=== PATIENT | female | born 1975 | race Caucasian/White ===

== ENCOUNTER 2018-09-23 15:55 | Emergency (ER) | payer SELFPAY ==
[~2018-09-23] VITALS: Ht 165.1 cm; Wt 61.2 kg
--- OUTSIDE RECORDS SUMMARY | 2018-09-23 15:58 | XMS REPORT | Clinical Summary ---
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 Active ranitidine (ZANTAC) 150 Take 150 mg 0 MG tablet by mouth every morning. Active biotin 1 mg tablet Take 1,000 0 mcg by mouth every morning. Active multivitamin with Take 1 tablet 0 minerals tablet by mouth every morning. Active ascorbic acid, vitamin C, Take 250 mg 0 (vitamin C) 250 MG tablet by mouth every morning. Active MILK THISTLE ORAL Take 1 tablet 0 by mouth every morning. Active TURMERIC ROOT EXTRACT Take 1 tablet 0 ORAL by mouth every morning. 09/29/2017 amoxicillin-pot Take 1 tablet 20 tablet 0 clavulanate (AUGMENTIN) by mouth 8 875-125 mg per tablet every 12 (twelve) hours for 10 days. 09/26/2017 Discontinued HYDROcodone-acetaminophen Take 1-2 20 tablet 0 (NORCO) 5-325 mg per tablets by 8 tablet mouth every 4 (four) hours as needed for moderate pain or severe pain for up to 5 days. Max Daily Amount: 12 tablets 10/03/2017 ciprofloxacin HCl (CIPRO) Take 1 tablet 7 tablet 0 750 MG tablet (750 mg 8 total) by mouth daily for 7 days. 10/11/2017 naproxen (NAPROSYN) 375 Take 1 tablet 30 tablet 0 MG tablet (375 mg 8 total) by mouth 2 (two) times a day with meals for 15 days. 11/03/2017 ciprofloxacin HCl (CIPRO) Take 1 tablet 10 tablet 0 500 MG tablet (500 mg 8 total) by mouth 2 (two) times a day for 5 days. 11/28/2017 potassium chloride Take 1 tablet 60 tablet 0 (KLOR-CON) 10 MEQ CR (10 mEq 8 tablet total) by mouth 2 (two) times a day for 30 days. 11/28/2017 magnesium oxide (MAG-OX) Take 1 tablet 30 tablet 0 400 mg tablet (400 mg 8 total) by mouth daily for 30 days. 04/03/2018 Discontinued butalbital-acetaminophen- Take 1 tablet 20 tablet 0 caff (FIORICET, ESGIC) by mouth 8 50-325-40 mg per tablet every 4 (four) hours as needed for headaches for up to 30 days. 05/02/2018 levETIRAcetam (KEPPRA) Take 1 tablet 60 tablet 0 500 MG tabletIndications: (500 mg 8 Seizure disorder (HCC) total) by mouth 2 (two) times a day for 30 days. 07/02/2018 ferrous sulfate 325 (65 Take 1 tablet 90 tablet 2 FE) MG tablet (325 mg 8 total) by mouth 3 (three) times a day for 90 days. 04/03/2018 magnesium oxide (MAG-OX) Take 2 2 tablet 0 400 mg (241.3 mg tablets (800 8 magnesium) tablet mg total) by mouth once for 1 dose. 05/20/2018 dicyclomine (BENTYL) 20 Take 2 40 tablet 0 mg tablet tablets (40 9 mg total) by mouth every 6 (six) hours as needed (Abdominal Pain) for up to 10 days. 05/17/2018 ondansetron (ZOFRAN) 4 MG Take 1 tablet 20 tablet 0 tablet (4 mg total) 9 by mouth every 6 (six) hours as needed for nausea or vomiting for up to 7 days. Active Problems Problem Noted Date Acidosis 03/31/2018 Anemia 03/31/2018 Seizure 03/31/2018 Chest pain 10/25/2017 Cellulitis of right lower extremity 09/23/2017 Encounters Care Team Description Date Type Specialty Checo Xie MD Seizures (HCC) (Primary Dx); Dehydration; Anemia, unspecified type; Hypomagnesemia 05/30/2018 Emergency Emergency Medicine Prudence Roman MD Acute bilateral lower abdominal pain (Primary Dx); Acute gastroenteritis; Epileptic seizure, generalized (HCC) 05/09/2018 Emergency Emergency Medicine - 05/10/2018 Sulma Antoine MD Kohli, Anjali, MD Acidosis (Primary Dx); Severe anemia; Seizure disorder (HCC); Anemia, unspecified type; Iron deficiency anemia due to chronic blood loss 03/31/2018 [facility] General Internal Medicine - Encounter 04/04/2018 Checo Xie MD Bavare, Arusha Amod, MD Chest pain, unspecified type (Primary Dx); Electrolyte abnormality; Seizure; Hyponatremia; Dehydration; Nonintractable episodic headache, unspecified headache type; Hypertensive urgency; Leukocytosis, unspecified type; Urinary tract infection without hematuria, site unspecified 10/24/2017 [facility] General Surgery - Encounter 10/29/2017 Tino Daigle MD Yerramadha, Muralidhar Reddy, MD Cellulitis of right lower extremity (Primary Dx); Cat bite, subsequent encounter 09/23/2017 [facility] General Internal Medicine - Encounter 09/26/2017 after 09/22/2017 Immunizations Name Dates Previously Given Next Due Tdap 09/19/2017 Family History Medical History Relation Name Comments Hypertension Father Breast cancer Mother Hypertension Mother Relation Name Status Comments Father Mother Social History Date Tobacco Use Types Packs/Day Years Used Light Tobacco Smoker Cigarettes 0.25 20 Smokeless Tobacco: Never Used Alcohol Use Drinks/Week oz/Week Comments Yes 2 Glasses of 1.2 socially wine Sex Assigned at Date Recorded Not on file Industry Job Start Date Occupation Not on file Not on file Not on file Travel End Travel History Travel Start No recent travel history available. Last Filed Vital Signs Time Taken Vital Sign Reading 05/30/2018 6:18 AM TECHNICAL MGR Blood Pressure 107/86 05/30/2018 6:18 AM TECHNICAL MGR Pulse 95 05/30/2018 2:21 AM TECHNICAL MGR Temperature 36.8 C (98.3 F) 05/30/2018 6:18 AM TECHNICAL MGR Respiratory Rate 14 05/30/2018 6:18 AM TECHNICAL MGR Oxygen Saturation 94% - Inhaled Oxygen - Concentration 05/09/2018 9:44 PM TECHNICAL MGR Weight 58.1 kg (128 lb) 05/30/2018 2:21 AM TECHNICAL MGR Height 165.1 cm (5' 5") 05/09/2018 9:44 PM TECHNICAL MGR Body Mass Index 21.97 Plan of Treatment Health Maintenance Due Date Last Done Comments INFLUENZA VACCINE 11/16/2018 Procedures Comments Procedure Name Priority Date/Time Associated Diagnosis ECG 12-LEAD STAT 05/30/2018 5:00 AM TECHNICAL MGR XR CHEST 1 VW PORTABLE STAT 05/30/2018 3:[address] HEAD WO CONTRAST STAT 05/30/2018 3:12 AM TECHNICAL MGR ESTIMATED GFR STAT 05/30/2018 2:54 AM TECHNICAL MGR CREATINE KINASE, TOTAL STAT 05/30/2018 (CPK) 2:54 AM TECHNICAL MGR B NATRIURETIC PEPTIDE STAT 05/30/2018 2:54 AM TECHNICAL MGR TROPONIN STAT 05/30/2018 2:54 AM TECHNICAL MGR MAGNESIUM LEVEL STAT 05/30/2018 2:54 AM TECHNICAL MGR PHOSPHORUS LEVEL STAT 05/30/2018 2:54 AM TECHNICAL MGR COMPREHENSIVE METABOLIC STAT 05/30/2018 PANEL 2:54 AM TECHNICAL MGR PARTIAL THROMBOPLASTIN STAT 05/30/2018 TIME (PTT) 2:54 AM TECHNICAL MGR PROTHROMBIN TIME WITH INR STAT 05/30/2018 2:54 AM TECHNICAL MGR HC COMPLETE BLD COUNT STAT 05/30/2018 W/AUTO DIFF 2:54 AM TECHNICAL MGR ECG ED PRELIMINARY Routine 05/30/2018 INTERPRETATION 2:[address] HEAD WO CONTRAST STAT 05/10/2018 12:[address] ABDOMEN PELVIS W STAT 05/10/2018 CONTRAST 12:57 AM TECHNICAL MGR SMEAR REVIEW STAT 05/09/2018 11:16 PM TECHNICAL MGR ESTIMATED GFR STAT 05/09/2018 11:16 PM TECHNICAL MGR KEPPRA (LEVETIRACETAM) Routine 05/09/2018 LEVEL 11:16 PM TECHNICAL MGR HCG QUALITATIVE, SERUM STAT 05/09/2018 SCREEN 11:16 PM TECHNICAL MGR URINALYSIS SCREEN AND STAT 05/09/2018 MICROSCOPY, WITH REFLEX 11:16 PM TECHNICAL MGR TO CULTURE LIPASE LEVEL STAT 05/09/2018 11:16 PM TECHNICAL MGR COMPREHENSIVE METABOLIC STAT 05/09/2018 PANEL 11:16 PM TECHNICAL MGR PROTHROMBIN TIME WITH INR STAT 05/09/2018 11:16 PM TECHNICAL MGR HC COMPLETE BLD COUNT STAT 05/09/2018 W/AUTO DIFF 11:16 PM TECHNICAL MGR URINE CULTURE STAT 05/09/2018 11:16 PM TECHNICAL MGR HC COMPLETE BLD COUNT Routine 04/04/2018 W/AUTO DIFF 4:15 AM TECHNICAL MGR ESTIMATED GFR Routine 04/04/2018 4:00 AM TECHNICAL MGR BASIC METABOLIC PANEL Routine 04/04/2018 4:00 AM TECHNICAL MGR URINE PROTEIN Routine 04/03/2018 ELECTROPHORESIS, 24 HOUR 3:30 PM TECHNICAL MGR ESTIMATED GFR Routine 04/03/2018 5:03 AM TECHNICAL MGR ANTI MITOCHONDRIA SCREEN Routine 04/03/2018 5:03 AM TECHNICAL MGR ANTI SMOOTH MUSCLE AB Routine 04/03/2018 SCREEN 5:03 AM TECHNICAL MGR ANTI-NEUTROPHILIC Routine 04/03/2018 CYTOPLASMIC ABS PANEL 5:03 AM TECHNICAL MGR CHICO Routine 04/03/2018 5:03 AM TECHNICAL MGR MAGNESIUM LEVEL Routine 04/03/2018 5:03 AM TECHNICAL MGR PHOSPHORUS LEVEL Routine 04/03/2018 5:03 AM TECHNICAL MGR HEPATIC FUNCTION PANEL Routine 04/03/2018 5:03 AM TECHNICAL MGR BASIC METABOLIC PANEL Routine 04/03/2018 5:03 AM TECHNICAL MGR HC COMPLETE BLD COUNT Routine 04/03/2018 W/AUTO DIFF 5:03 AM TECHNICAL MGR US HEPATIC Routine 04/02/2018 2:25 PM TECHNICAL MGR GC BY PROBETEC Routine 04/02/2018 1:31 PM TECHNICAL MGR HEPATITIS ACUTE PANEL Routine 04/02/2018 11:05 AM TECHNICAL MGR HC COMPLETE BLD COUNT Routine 04/02/2018 W/AUTO DIFF 6:41 AM TECHNICAL MGR ESTIMATED GFR Routine 04/02/2018 4:00 AM TECHNICAL MGR BASIC METABOLIC PANEL Routine 04/02/2018 4:00 AM TECHNICAL MGR HEMOGLOBIN & HEMATOCRIT Routine 04/01/2018 6:15 PM TECHNICAL MGR MRI BRAIN W WO CONTRAST STAT 04/01/2018 3:56 PM TECHNICAL MGR CBC HEMOGRAM Routine 04/01/2018 11:10 AM TECHNICAL MGR HEMOGLOBIN A1C STAT 04/01/2018 11:10 AM TECHNICAL MGR SERUM ELECTROPHORESIS Routine 04/01/2018 11:10 AM TECHNICAL MGR PARTIAL THROMBOPLASTIN Routine 04/01/2018 TIME (PTT) 11:10 AM TECHNICAL MGR PROTHROMBIN TIME WITH INR Routine 04/01/2018 11:10 AM TECHNICAL MGR BLOOD CULTURE, AEROBIC & Routine 04/01/2018 ANAEROBIC 11:10 AM TECHNICAL MGR BLOOD CULTURE, AEROBIC & Routine 04/01/2018 ANAEROBIC 10:10 AM TECHNICAL MGR ECG 12-LEAD STAT 04/01/2018 9:54 AM TECHNICAL MGR EEG EXTENDED 41 - 60 MINS Routine 04/01/2018 9:00 AM TECHNICAL MGR LACTIC ACID LEVEL STAT 04/01/2018 7:30 AM TECHNICAL MGR GGT STAT 04/01/2018 7:30 AM TECHNICAL MGR POTASSIUM, URINE, RANDOM Routine 04/01/2018 7:30 AM TECHNICAL MGR TROPONIN STAT 04/01/2018 7:30 AM TECHNICAL MGR LIPID PANEL STAT 04/01/2018 7:30 AM TECHNICAL MGR VITAMIN B12 LEVEL STAT 04/01/2018 7:30 AM TECHNICAL MGR FOLATE LEVEL STAT 04/01/2018 7:30 AM TECHNICAL MGR HEPATITIS BE AB Routine 04/01/2018 7:30 AM TECHNICAL MGR HEPATITIS BE AG Routine 04/01/2018 7:30 AM TECHNICAL MGR HEPATITIS B SURFACE Routine 04/01/2018 ANTIBODY 7:30 AM TECHNICAL MGR HIV AG/AB COMBINATION Routine 04/01/2018 7:30 AM TECHNICAL MGR CHLORIDE LEVEL, URINE, Routine 04/01/2018 RANDOM 7:30 AM TECHNICAL MGR SODIUM LEVEL, URINE, Routine 04/01/2018 RANDOM 7:30 AM TECHNICAL MGR URINALYSIS SCREEN AND Routine 04/01/2018 MICROSCOPY, WITH REFLEX 7:30 AM TECHNICAL MGR TO CULTURE URINE DRUGS OF ABUSE Routine 04/01/2018 SCREEN 7:30 AM TECHNICAL MGR URINE CULTURE Routine 04/01/2018 7:30 AM TECHNICAL MGR PREALBUMIN LEVEL Routine 04/01/2018 3:45 AM TECHNICAL MGR GGT Routine 04/01/2018 3:20 AM TECHNICAL MGR LACTIC ACID LEVEL Routine 04/01/2018 3:20 AM TECHNICAL MGR SMEAR REVIEW Routine 04/01/2018 3:20 AM TECHNICAL MGR ESTIMATED GFR Routine 04/01/2018 3:20 AM TECHNICAL MGR HC COMPLETE BLD COUNT Routine 04/01/2018 W/AUTO DIFF 3:20 AM TECHNICAL MGR PHOSPHORUS LEVEL Routine 04/01/2018 3:20 AM TECHNICAL MGR MAGNESIUM LEVEL Routine 04/01/2018 3:20 AM TECHNICAL MGR COMPREHENSIVE METABOLIC Routine 04/01/2018 PANEL 3:20 AM TECHNICAL MGR LACTIC ACID LEVEL, SEPSIS Timed 04/01/2018 - NOW AND REPEAT 2X EVERY 1:10 AM TECHNICAL MGR [address] ANGIOGRAM ABDOMEN STAT 04/01/2018 PELVIS W AND OR WO 1:00 AM TECHNICAL MGR CONTRAST HEPATITIS C ANTIBODY Routine 04/01/2018 12:53 AM TECHNICAL MGR LACTIC ACID LEVEL Routine 03/31/2018 9:51 PM TECHNICAL MGR FOLATE LEVEL Routine 03/31/2018 9:51 PM TECHNICAL MGR THYROID STIMULATING Routine 03/31/2018 HORMONE 9:51 PM TECHNICAL MGR VITAMIN B12 LEVEL Routine 03/31/2018 9:51 PM TECHNICAL MGR TOTAL IRON BINDING Routine 03/31/2018 CAPACITY 9:51 PM TECHNICAL MGR LDH Routine 03/31/2018 9:51 PM TECHNICAL MGR HAPTOGLOBIN Routine 03/31/2018 9:51 PM TECHNICAL MGR FERRITIN LEVEL Routine 03/31/2018 9:51 PM TECHNICAL MGR RETICULOCYTE COUNT Routine 03/31/2018 9:51 PM TECHNICAL MGR PERIPHERAL SMEAR Routine 03/31/2018 9:[address] HEAD WO CONTRAST STAT 03/31/2018 9:25 PM TECHNICAL MGR PREPARE RBC Timed 03/31/2018 8:54 PM TECHNICAL MGR TYPE AND SCREEN Timed 03/31/2018 8:54 PM TECHNICAL MGR HEMOGLOBIN & HEMATOCRIT STAT 03/31/2018 8:49 PM TECHNICAL MGR SMEAR REVIEW STAT 03/31/2018 7:36 PM TECHNICAL MGR ESTIMATED GFR STAT 03/31/2018 7:36 PM TECHNICAL MGR CREATINE KINASE, TOTAL STAT 03/31/2018 (CPK) 7:36 PM TECHNICAL MGR LACTIC ACID LEVEL, SEPSIS STAT 03/31/2018 - NOW AND REPEAT 2X EVERY 7:36 PM TECHNICAL MGR 3 HOURS HCG QUALITATIVE, SERUM STAT 03/31/2018 SCREEN 7:36 PM TECHNICAL MGR COMPREHENSIVE METABOLIC STAT 03/31/2018 PANEL 7:36 PM TECHNICAL MGR HC COMPLETE BLD COUNT STAT 03/31/2018 W/AUTO DIFF 7:36 PM TECHNICAL MGR DC CRITICAL CARE, E/M Routine 03/31/2018 30-74 MINUTES 7:17 PM TECHNICAL MGR ZZESTIMATED GFR Routine 10/29/2017 4:29 AM CDT CREATINE KINASE, TOTAL Routine 10/29/2017 (CPK) 4:29 AM CDT MAGNESIUM LEVEL Routine 10/29/2017 4:29 AM CDT COMPREHENSIVE METABOLIC Routine 10/29/2017 PANEL 4:29 AM CDT HC COMPLETE BLD COUNT Routine 10/29/2017 W/AUTO DIFF 4:29 AM CDT ZZESTIMATED GFR Routine 10/28/2017 8:46 AM CDT MAGNESIUM LEVEL Routine 10/28/2017 8:46 AM CDT CREATINE KINASE, TOTAL Routine 10/28/2017 (CPK) 8:46 AM CDT COMPREHENSIVE METABOLIC Routine 10/28/2017 PANEL 8:46 AM CDT ZZESTIMATED GFR Routine 10/27/2017 4:30 AM CDT THYROID STIMULATING Routine 10/27/2017 HORMONE 4:30 AM CDT URIC ACID LEVEL Routine 10/27/2017 4:30 AM CDT CREATINE KINASE, TOTAL Routine 10/27/2017 (CPK) 4:30 AM CDT PHOSPHORUS LEVEL Routine 10/27/2017 4:30 AM CDT MAGNESIUM LEVEL Routine 10/27/2017 4:30 AM CDT HC COMPLETE BLD COUNT Routine 10/27/2017 W/AUTO DIFF 4:30 AM CDT COMPREHENSIVE METABOLIC Routine 10/27/2017 PANEL 4:30 AM CDT CREATINE KINASE, TOTAL Routine 10/26/2017 (CPK) 12:16 PM CDT ALDOLASE, SERUM Routine 10/26/2017 12:16 PM CDT MYOGLOBIN Routine 10/26/2017 12:16 PM CDT ECHOCARDIOGRAM 2D Routine 10/25/2017 COMPLETE W MMODE SPECTRAL 5:00 PM CDT COLOR DOPPLER ([id number]) TROPONIN Timed 10/25/2017 2:34 PM CDT MRI BRAIN WO CONTRAST STAT 10/25/2017 11:50 AM CDT ZZESTIMATED GFR Routine 10/25/2017 5:00 AM CDT COMPREHENSIVE METABOLIC Routine 10/25/2017 PANEL 5:00 AM CDT HC COMPLETE BLD COUNT Routine 10/25/2017 W/AUTO DIFF 5:00 AM CDT TROPONIN Timed 10/25/2017 5:[address] ANGIOGRAM PE CHEST STAT 10/25/2017 12:[address] HEAD WO CONTRAST STAT 10/25/2017 12:18 AM CDT D-DIMER Routine 10/24/2017 10:20 PM CDT ZZESTIMATED GFR STAT 10/24/2017 9:57 PM CDT THYROID STIMULATING STAT 10/24/2017 HORMONE 9:57 PM CDT CREATINE KINASE, TOTAL STAT 10/24/2017 (CPK) 9:57 PM CDT B NATRIURETIC PEPTIDE STAT 10/24/2017 9:57 PM CDT TROPONIN STAT 10/24/2017 9:57 PM CDT MAGNESIUM LEVEL STAT 10/24/2017 9:57 PM CDT PHOSPHORUS LEVEL STAT 10/24/2017 9:57 PM CDT COMPREHENSIVE METABOLIC STAT 10/24/2017 PANEL 9:57 PM CDT HCG QUALITATIVE, URINE STAT 10/24/2017 SCREEN 9:57 PM CDT URINALYSIS SCREEN AND STAT 10/24/2017 MICROSCOPY, WITH REFLEX 9:57 PM CDT TO CULTURE HC COMPLETE BLD COUNT STAT 10/24/2017 W/AUTO DIFF 9:57 PM CDT GRAM STAIN STAT 10/24/2017 9:57 PM CDT URINE CULTURE STAT 10/24/2017 9:57 PM CDT XR CHEST 2 VW STAT 10/24/2017 9:45 PM CDT ECG ED PRELIMINARY Routine 10/24/2017 INTERPRETATION 9:06 PM CDT DC CRITICAL CARE, E/M Routine 10/24/2017 30-74 MINUTES 9:06 PM CDT ECG 12-LEAD STAT 10/24/2017 8:53 PM CDT HC COMPLETE BLD COUNT Routine 09/25/2017 W/AUTO DIFF 6:00 AM CDT MRI FOOT WO CONTRAST LEFT Routine 09/24/2017 7:01 PM CDT US HEPATIC Routine 09/24/2017 5:09 PM CDT SEDIMENTATION RATE Routine 09/24/2017 5:04 AM CDT HEPATITIS ACUTE PANEL Routine 09/24/2017 5:04 AM CDT ZZESTIMATED GFR Routine 09/24/2017 5:00 AM CDT COMPREHENSIVE METABOLIC Routine 09/24/2017 PANEL 5:00 AM CDT HC COMPLETE BLD COUNT Routine 09/24/2017 W/AUTO DIFF 5:00 AM CDT ZZESTIMATED GFR STAT 09/23/2017 9:10 PM CDT HCG QUALITATIVE, SERUM STAT 09/23/2017 SCREEN 9:10 PM CDT LACTIC ACID LEVEL STAT 09/23/2017 9:10 PM CDT COMPREHENSIVE METABOLIC STAT 09/23/2017 PANEL 9:10 PM CDT PARTIAL THROMBOPLASTIN STAT 09/23/2017 TIME (PTT) 9:10 PM CDT PROTHROMBIN TIME WITH INR STAT 09/23/2017 9:10 PM CDT HC COMPLETE BLD COUNT STAT 09/23/2017 W/AUTO DIFF 9:10 PM CDT XR FOOT 3+ VW RIGHT STAT 09/23/2017 7:13 PM CDT after 09/22/2017 Results * ECG 12 lead (05/30/2018 5:00 AM TECHNICAL MGR) Only the most recent of 3 results within the time period is included. Ventricular 92 [facility] rate Atrial rate 92 [facility] DC interval 152 [facility] QRSD interval 84 [facility] QT interval 398 [facility] QTC interval 492 [facility] P axis 1 48 [facility] QRS axis 1 12 [facility] T wave axis 41 [facility] EKG impression Normal sinus rhythm-Prolonged H MUSE QT-Abnormal ECG-In automated comparison with ECG of 01-APR-2018 09:54,-No significant change was found- Specimen Narrative Performed At Performing Organization Address City/[facility] Phone Number [facility] MUSE [address] [place] [address] * XR Chest 1 Vw Portable (05/30/2018 3:17 AM TECHNICAL MGR) Specimen Narrative Performed At Examination:XR CHEST 1 VW PORTABLE [facility] Clinical History:seizures Comparison: None. Technique: Single frontal view of the chest is obtained. Findings: The lungs are free of infiltrate. The heart size is normal. No pleural effusion is seen. Impression: No active cardiopulmonary disease identified. [id number] Procedure Note Hm Interface, Radiology Results Incoming - 05/30/2018 3:22 AM TECHNICAL MGR Examination: XR CHEST 1 VW PORTABLE Clinical History: seizures Comparison: None. Technique: Single frontal view of the chest is obtained. Findings: The lungs are free of infiltrate. The heart size is normal. No pleural effusion is seen. Impression: No active cardiopulmonary disease identified. [id number] Performing Organization Address City/[facility] Phone Number [facility] [address] [place] [address] * CT Head Wo Contrast (05/30/2018 3:12 AM TECHNICAL MGR) Only the most recent of 4 results within the time period is included. Specimen Narrative Performed At Examination:CT HEAD WO CONTRAST [facility] Clinical History: seizureheadachefrontal sinus pressure Comparison: None. CT scan of the brain was performed without intravenous contrast. CT scans are performed using radiation dose reduction techniques.Technical factors are evaluated and adjusted to ensure appropriate moderation of exposure.Automated dose management technology is applied to adjust radiation exposure while achieving a diagnostic quality image.CT imaging was performed with iterative reconstruction techniques and/or automated exposure control to reduce radiation dose. No mass effect or midline shift is seen. The ventricles are normal in size. No intracranial hemorrhage is seen. The visualized bony structures shows no acute abnormality. Harmon-white junctions are preserved. Minimal mucosal thickening of left maxillary sinus is noted. Remainder of the sinuses are clear. IMPRESSION: 1. Minimal mucosal thickening of the left maxillary sinus. Otherwise no acute or focal intracranial abnormality identified. [id number] Procedure Note Interface, Radiology Results Incoming - 05/30/2018 3:21 AM TECHNICAL MGR Examination: CT HEAD WO CONTRAST Clinical History: seizure headache frontal sinus pressure Comparison: None. CT scan of the brain was performed without intravenous contrast. CT scans are performed using radiation dose reduction techniques. Technical factors are evaluated and adjusted to ensure appropriate moderation of exposure. Automated dose management technology is applied to adjust radiation exposure while achieving a diagnostic quality image. CT imaging was performed with iterative reconstruction techniques and/or automated exposure control to reduce radiation dose. No mass effect or midline shift is seen. The ventricles are normal in size. No intracranial hemorrhage is seen. The visualized bony structures shows no acute abnormality. Harmon-white junctions are preserved. Minimal mucosal thickening of left maxillary sinus is noted. Remainder of the sinuses are clear. IMPRESSION: 1. Minimal mucosal thickening of the left maxillary sinus. Otherwise no acute or focal intracranial abnormality identified. [id number] Performing Organization Address City/State/Zipcode Phone Number [facility] [address] [place] [address] * Estimated GFR (05/30/2018 2:54 AM TECHNICAL MGR) Only the most recent of 7 results within the time period is included. Estimated GFR >=90 mL/min/1.73 m2 SPENCER Comment: CONFUCIANIST [facility] rpretation G1 >=90 Normal or high G2 60-89Mildly decreased [id number] Mildly to moderately decreased [id number] Moderately to severely decreased G4 15-29Severely decreased G5 <15Kidney failure The eGFR was calculated using the Chronic Kidney Disease Epidemiology Collaboration (CKD-EPI) equation. Interpretation is based on recommendations of the National Kidney Foundation-Kidney Disease Outcomes Quality Initiative (NKF-KDOQI) published in 2014. Specimen Plasma specimen Performing Organization Address [facility] Phone Number [address] [place] [place] [address] * Troponin (05/30/2018 2:54 AM TECHNICAL MGR) Only the most recent of 5 results within the time period is included. [facility] Troponin <0.300 0.000 - 0.300 ng/mL SPENCER Comment: CONFUCIANIST ST. 0.30 - 1.49 [facility] ng/mlMay indicate increased risk of acute coronary syndrome. >=1.5 ng/ml Consistent with acute myocardial infarction. The diagnostic value of a single normal or non-diagnostic result is questionable.Serial samples at 2-6 hour intervals are required to rule out acute myocardial injury. Specimen Plasma specimen Performing Organization Address [facility] Phone Number [address] [place] [address] [place] [address] * Partial thromboplastin time, activated (05/30/2018 2:54 AM TECHNICAL MGR) Only the most recent of 3 results within the time period is included. [facility] PTT 37.3 (H) 23.0 - 36.0 sec SPENCER Comment: SAURAV TEJEDA PTT therapeutic range for [facility] unfractionated heparin is 61.0-112.0 seconds which corresponds to Anti-Xa 0.3-0.7 U/ml. Specimen Blood Performing Organization Address [facility] Phone Number [place] [address] [place] [place] [address] [place] [address] * Prothrombin time with INR (05/30/2018 2:54 AM TECHNICAL MGR) Only the most recent of 4 results within the time period is included. [facility] Prothrombin 14.1 11.5 - 14.5 sec [facility] INR 1.1 SPENCER Comment: SAURAV LOCKWOOD The International Normalized [facility] Ratio (INR) is a therapeutic monitoring tool for patients who are stable on oral anticoagulant therapy. An INR of 2.0-3.0 is suggested for deep vein thrombosis/pulmonary embolism. Specimen Blood Performing Organization Address City/[facility]/Zipcode Phone Number [address] [place] [phone] [facility]OLOGY [facility] GENOMIC MEDICINE [address] * CBC with platelet and differential (05/30/2018 2:54 AM TECHNICAL MGR) Only the most recent of 14 results within the time period is included. WBC 4.16 (L) 4.50 - 11.00 k/uL [facility] RBC 3.72 (L) 4.20 - 5.50 m/uL [facility] HGB 11.1 (L) 12.0 - 16.0 g/dL [facility] HCT 34.5 (L) 37.0 - 47.0 % [facility] MCV 92.7 82.0 - 100.[address] [facility] MCH 29.8 27.0 - 34.[address] [facility] MCHC 32.2 31.0 - 37.0 g/dL [facility] RDW - SD 54.4 37.0 - 55.[address] [facility] MPV 9.2 8.8 - 13.[address] [facility] Platelet count 221 150 - 400 k/uL [facility] Nucleated RBC 0.00 /[address] [facility] Neutrophils 27.9 (L) 39.0 - 69.0 % [facility] [facility] Lymphocytes 51.2 (H) 25.0 - 45.0 % [facility] Monocytes 17.1 (H) 0.0 - 10.0 % [facility] Eosinophils 1.9 0.0 - 5.0 % [facility] Basophils 1.9 (H) 0.0 - 1.0 % [facility] Specimen Blood Performing Organization Address City/[facility]/Zipcode Phone Number [facility] OF [address] [place] [address] [place] [address] PATHOLOGY AND GENOMIC MEDICINE [address] * Phosphorus level (05/30/2018 2:54 AM TECHNICAL MGR) Only the most recent of 5 results within the time period is included. Phosphorus 4.1 2.4 - 4.5 mg/dL [facility] Specimen Plasma specimen Performing Organization Address [facility] Phone Number [address] [place] [address] PATHOLOGY AND [address] * B natriuretic peptide (05/30/2018 2:54 AM TECHNICAL MGR) Only the most recent of 2 results within the time period is included. BNP 17 0 - 100 pg/mL [facility] Specimen Blood Performing Organization Address [facility] Phone Number [address] [place] [address] PATHOLOGY AND [address] * Magnesium level (05/30/2018 2:54 AM TECHNICAL MGR) Only the most recent of 7 results within the time period is included. Magnesium 1.5 (L) 1.6 - 2.6 mg/dL [facility] Specimen Plasma specimen Performing Organization Address [facility] Phone Number [address] [place] [address] PATHOLOGY AND GENOMIC [address] * Creatine kinase, total (CPK) (05/30/2018 2:54 AM TECHNICAL MGR) Only the most recent of 7 results within the time period is included. Creatine kinase 65 26 - 192 U/L [facility] Specimen Plasma specimen Performing Organization Address [facility] Phone Number [address] [place] [address] [facility]INE [address] * Comprehensive metabolic panel (05/30/2018 2:54 AM TECHNICAL MGR) Only the most recent of 11 results within the time period is included. Sodium 139 135 - 148 mEq/L [facility] Potassium 4.1 3.5 - 5.0 mEq/L [facility] Chloride 105 98 - 112 mEq/L [facility] CO2 21 (L) 24 - 31 mEq/L [facility] Anion gap 13@ANIO 7 - 15 mEq/L [facility] BUN 9 6 - 20 mg/dL [facility] Creatinine 0.50 0.50 - 0.90 mg/dL [facility] Glucose 100 (H) 65 - 99 mg/dL [facility] Calcium 9.4 8.3 - 10.2 mg/dL [facility] Protein 8.8 (H) 6.3 - 8.3 g/dL [facility] Comment: [facility] 4.6-7.0 g/dL 1 week 4.4-7.6 g/dL 7 months-1year 5.1-7.3 g/dL 1-2 years5.6-7 .5 g/dL >3 years6.0-8 .0 g/dL 18-150 6.3-8.3 g/dL Albumin 4.5 3.5 - 5.0 g/dL [facility] A/G ratio 1.0 0.7 - 3.8 [facility] Alkaline 373 (H) 35 - 104 U/L [facility] phosphatase [facility] AST 124 (H) 10 - 35 U/L [facility] ALT 39 5 - 50 U/L [facility] Total bilirubin 0.3 0.0 - 1.2 mg/dL [facility] Specimen Plasma specimen Performing Organization Address City/State/Zipcode Phone Number [facility] [place] [id number] [place] [address] [place] [address] PATHOLOGY AND GENOMIC MEDICINE [facility] [id number] [place] [address] * ECG ED Preliminary Interpretation - Not an Order (05/30/2018 2:20 AM TECHNICAL MGR) Only the most recent of 2 results within the time period is included. Narrative Performed At Checo Xie MD 05/30/20187:18 AM ECG ED Preliminary Interpretation - Not an Order Performed by: Checo Xie MD Authorized by: Checo Xie MD Rate: ECG rate:92 ECG rate assessment: normal Rhythm: Rhythm: sinus rhythm QRS: QRS axis:Normal QRS intervals:Normal ST segments: ST segments:Normal T waves: T waves: normal Other findings: Other findings: prolonged qTc interval * CT Abdomen Pelvis W Contrast (05/10/2018 12:57 AM TECHNICAL MGR) Specimen Narrative Performed At EXAMINATION:CT ABDOMEN PELVIS W CONTRAST [facility] CLINICAL HISTORY:Lower abd pain tendernesscolonoscopy 1 week ago. TECHNIQUE: Multiple axial images of the abdomen and pelvis were obtained following intravenous administration of iodinated contrast. Sagittal and coronal computerized reformatted images were also obtained. CT imaging was performed with iterative reconstruction technique and/or automated exposure control to reduce radiation dose. COMPARISON:04/01/2018 IMPRESSION: Mild bibasilar atelectasis. In the right middle lobe, there is a 4 mm nodule. Patient is status post cholecystectomy. Liver is enlarged measuring 21.6 cm in length. Spleen, pancreas, adrenal glands are normal. Kidneys, ureters and bladder are normal. No free intraperitoneal fluid or air. Some prominent lymph nodes are seen in the chaim hepatis and upper retroperitoneum. This is nonspecific but could be reactive to underlying infection or inflammation or hepatitis. A radiopaque foreign body is seen in the rectum measuring 1.2 x 0.6 cm. Air-fluid levels are seen of nondilated loops of large bowel and small bowel. This is nonspecific but could be seen with ileus or enteritis. The appendix is surgically absent. No gastrointestinal tract obstruction. Arising from the right ovary, a 2.2 x 2.2 cm cyst is identified. Just adjacent, 1.5 x 1.8 cm complex cystic structure is seen measuring greater density in simple fluid. These findings would be better assessed with pelvic ultrasound. No acute osseous abnormalities. CONCLUSION: There is a 1.2 x 0.6 cm radiopaque foreign body in the rectum. Correlation for prior clip placement is advised. Air-fluid levels are seen of nondilated loops of large bowel and small bowel. This nonspecific but could be seen with ileus or enteritis. A 2.2 x 2.2 cm cyst is seen of the right ovary. A 1.5 x 1.8 cm complex cystic structure is seen just adjacent. These findings would be better assessed with pelvic ultrasound. Findings were discussed with and read back by Dr. PRUDENCE ROMAN at 05/10/2018 1:08 AM who verbalized understanding. [facility]-[id number] Procedure Note [facility], Radiology Results Incoming - 05/10/2018 1:15 AM TECHNICAL MGR EXAMINATION: CT ABDOMEN PELVIS W CONTRAST CLINICAL HISTORY: Lower abd pain tenderness colonoscopy 1 week ago. TECHNIQUE: Multiple axial images of the abdomen and pelvis were obtained following intravenous administration of iodinated contrast. Sagittal and coronal computerized reformatted images were also obtained. CT imaging was performed with iterative reconstruction technique and/or automated exposure control to reduce radiation dose. COMPARISON: 04/01/2018 IMPRESSION: Mild bibasilar atelectasis. In the right middle lobe, there is a 4 mm nodule. Patient is status post cholecystectomy. Liver is enlarged measuring 21.6 cm in length. Spleen, pancreas, adrenal glands are normal. Kidneys, ureters and bladder are normal. No free intraperitoneal fluid or air. Some prominent lymph nodes are seen in the chaim hepatis and upper retroperitoneum. This is nonspecific but could be reactive to underlying infection or inflammation or hepatitis. A radiopaque foreign body is seen in the rectum measuring 1.2 x 0.6 cm. Air- fluid levels are seen of nondilated loops of large bowel and small bowel. This is nonspecific but could be seen with ileus or enteritis. The appendix is surgically absent. No gastrointestinal tract obstruction. Arising from the right ovary, a 2.2 x 2.2 cm cyst is identified. Just adjacent, 1.5 x 1.8 cm complex cystic structure is seen measuring greater density in simple fluid. These findings would be better assessed with pelvic ultrasound. No acute osseous abnormalities. CONCLUSION: There is a 1.2 x 0.6 cm radiopaque foreign body in the rectum. Correlation for prior clip placement is advised. Air-fluid levels are seen of nondilated loops of large bowel and small bowel. This nonspecific but could be seen with ileus or enteritis. A 2.2 x 2.2 cm cyst is seen of the right ovary. A 1.5 x 1.8 cm complex cystic structure is seen just adjacent. These findings would be better assessed with pelvic ultrasound. Findings were discussed with and read back by Dr. PRUDENCE ROMAN at 05/10/2018 1:08 AM who verbalized understanding. [facility]-[id number] Performing Organization Address City/State/Zipcode Phone Number [facility] [address] [place] [address] * Urinalysis screen and microscopy, with reflex to culture (05/09/2018 11:16 PM TECHNICAL MGR) Only the most recent of 3 results within the time period is included. Specimen site Clean catch [facility] Color, UA Straw [facility] Appearance, UA Clear [facility] Specific 1.003 1.001 - 1.035 [facility] gravity, UA [facility] pH, UA 5.0 5.0 - 8.5 [facility] Protein, UA Negative Negative [facility] Glucose, UA Negative Negative [facility] Ketones, UA Negative Negative [facility] Bilirubin, UA Negative Negative [facility] Blood, UA Negative Negative [facility] Nitrite, UA Negative Negative [facility] Urobilinogen, Negative <2.0 [facility] Leukocyte Negative Negative [facility] esterase, UA [facility] Epithelial Few /HPF [facility] cells, UA [facility] WBC, UA 0-5 0 - 4 /HPF [facility] RBC, UA 0-5 0 - 5 /HPF [facility] Bacteria, UA None seen None seen [facility] Yeast, UA None seen [facility] Yeast with None seen [facility] Spec[facility] Urine Performing Organization Address City/[facility] Phone Number [address] [place] [address] PATHOLOGY AND GENOMIC MEDICINE [address] [place], [place] [id number] [place] [address] * Smear review (05/09/2018 11:16 PM TECHNICAL MGR) Only the most recent of 3 results within the time period is included. Platelet slide Dane adequate [facility] review [facility] Anisocytosis Moderate [facility] Specimen Performing Organization Address City/State/Zipcode Phone Number [facility] DEPARTMENT [address] [place] [address] PATHOLOGY AND GENOMIC MEDICINE [address] * Keppra (Levetiracetam) level (05/09/2018 11:16 PM TECHNICAL MGR) [facility] Levetiracetam 14 12 - 46 ug/mL [facility] Comment: INTERPRETIVE INFORMATION: Keppra (Levetiracetam) Therapeutic Range:12-46 ug/mL Toxic: Not well Established Pharmacokinetics of levetiracetam are affected by renal function. Adverse effects may include somnolence, weakness, headache and vomiting. This levetiracetam (Keppra) immunoassay uses the [employer] reagents, which has known cross-reactivity with the drug brivaracetam (Briviact) and may report inaccurate results. Patients transitioning from levetiracetam to brivaracetam or those who are using both medications should not monitor drug concentrations with the [employer] assay. These patients should be monitored using a validated chromatographic methodology that distinguishes between drugs to determine drug concentrations. Performed by [facility], [address] [place] [id number] [email or web address], Clayton Chambers MD - Lab. Director Specimen Serum Performing Organization Address City/[facility]/Zipcode Phone Number [facility] [address] [place] [address] [facility] [address] [place] [address] * Urine culture (05/09/2018 11:16 PM TECHNICAL MGR) Only the most recent of 3 results within the time period is included. [facility] Urine culture SEE COMMENTComment: [facility] Bacteriuria screen negative. [facility] Specimen Urine Performing Organization Address City/State/Zipcode Phone Number [facility] DEPARTMENT OF [address] [place] [address] [place] [address] PATHOLOGY AND GENOMIC MEDICINE [address] * hCG qualitative, serum screen (05/09/2018 11:16 PM TECHNICAL MGR) Only the most recent of 3 results within the time period is included. [facility] hCG Negative [facility] qualitative, Comment: [facility] serum lot [id number] [facility] exp, 8-20 control valid Specimen Blood Performing Organization Address [facility] Corporationcoid Phone Number [facility] DEPARTMENT [id number] [place] [address] [place] [address] [facility] MEDICINE [address] * Lipase level (05/09/2018 11:16 PM TECHNICAL MGR) Lipase 31 13 - 60 U/L [facility] Specimen Plasma specimen Performing Organization Address [facility] Phone Number [address] [place] [address] [facility] [address] * Basic metabolic panel (04/04/2018 4:00 AM TECHNICAL MGR) Only the most recent of 3 results within the time period is included. Sodium 137 135 - 148 mEq/L [facility] Potassium 4.1 3.5 - 5.0 mEq/L [facility] Chloride 101 98 - 112 mEq/L [facility] CO2 20 (L) 24 - 31 mEq/L [facility] Anion gap 16@ANIO (H) 7 - 15 mEq/L [facility] BUN 11 6 - 20 mg/dL [facility] Creatinine 0.60 0.50 - 0.90 mg/dL [facility] Glucose 87 65 - 99 mg/dL [facility] Calcium 9.7 8.3 - 10.2 mg/dL [facility] Specimen Plasma specimen Performing Organization Address [facility] Corporationcode Phone Number [facility] DEPARTMENT [address] [place] [address] [facility] MEDICINE [address] * Urine protein electrophoresis, 24 hour (04/03/2018 3:30 PM TECHNICAL MGR) Collection 04/02/2018 [facility] start date, [facility] Collection 1529 [facility] start time, [facility] Collection stop 04/03/2018 [facility] date, urine [facility] Collection stop 1529 [facility] time, urine [facility] Hours of 24 [facility] Total volume, 4,950 mL [facility] urine [facility] Urine protein <4 mg/dL [facility] Urine protein SEE COMMENTComment: Unable to 0 - 150 mg/24hrs [facility] 24 hr excretion calculate excretion due to low CONFUCIANIST analyte concentration. HOSPITAL UPE albumin 45.5 % [facility] UPE globulin 54.5 % [facility] UPE extended See Comment [facility] interpretation Comment: CONFUCIANIST An essentially normal 24 hour HOSPITAL urine protein study without clinical proteinuria. Total volume is in the polyuric range. UPE See Comment [facility] interpretation Comment: CONFUCIANIST Cristino Bowers, PhD; [facility] MD Sander; Jam Orellana, PhD; Yazan Park MD, PhD Specimen Urine Performing Organization Address City/State/Zipcode Phone Number [facility] DEPARTMENT OF [address] [place] [address] [facility] [address] * Anti smooth muscle Ab screen (04/03/2018 5:03 AM TECHNICAL MGR) [facility] Anti smooth Not Detected Not-Detected [facility] muscle Ab [facility] Specimen Blood Performing Organization Address City/[facility] Corporationcode Phone Number [facility] [place] [facility] DEPARTMENT OF [address] [place] [address] PATHOLOGY AND GENOMIC MEDICINE [address] * Anti mitochondria screen (04/03/2018 5:03 AM TECHNICAL MGR) [facility] Anti Not Detected Not-Detected [facility] mitochondria [facility] Specimen Blood Performing Organization Address City/[facility] Corporationcode Phone Number [facility] [place] [facility] DEPARTMENT OF [address] [place] [address] [facility] MEDICINE [address] * Anti-neutrophilic cytoplasmic Abs panel (04/03/2018 5:03 AM TECHNICAL MGR) [facility] ANCA screen Negative Negative [facility] Specimen Blood Performing Organization Address City/[facility]/Zipcode Phone Number [facility] [place] [facility] DEPARTMENT OF [address] [place] [address] [facility] MEDICINE [address] * CHICO (04/03/2018 5:03 AM TECHNICAL MGR) [facility] CHICO screen Negative Negative [facility] Specimen Blood Performing Organization Address City/[facility]/Zipcode Phone Number [facility] [place] [facility] DEPARTMENT OF [address] [place] [address] PATHOLOGY AND GENOMIC MEDICINE [address] * Hepatic function panel (04/03/2018 5:03 AM TECHNICAL MGR) Albumin 3.3 (L) 3.5 - 5.0 g/dL [facility] Total bilirubin 0.5 0.0 - 1.2 mg/dL [facility] Bilirubin <0.2 0.0 - 0.3 mg/dL [facility] direct [facility] Alkaline 261 (H) 35 - 104 U/L [facility] phosphatase [facility] Protein 7.7 6.3 - 8.3 g/dL [facility] Comment: [facility] [place] 4.6-7.0 g/dL 1 week 4.4-7.6 g/dL 7 months-1year 5.1-7.3 g/dL 1-2 years5.6-7 .5 g/dL >3 years6.0-8 .0 g/dL 18-150 6.3-8.3 g/dL ALT 24 5 - 50 U/L [facility] AST 50 (H) 10 - 35 U/L [facility] Specimen Plasma specimen Performing Organization Address City/State/Zipcode Phone Number [facility] [place] [facility] DEPARTMENT OF [address] [place] [address] PATHOLOGY AND GENOMIC MEDICINE [address] * US Hepatic (04/02/2018 2:25 PM TECHNICAL MGR) Only the most recent of 2 results within the time period is included. Specimen Narrative Performed At EXAMINATION:US HEPATIC [facility] CLINICAL HISTORY:elevated LFTs COMPARISON:September 24, 2017 ultrasound Impression: 1.There has been a prior cholecystectomy. The common bile duct is not dilated (4 mm). 2.There may be mild increase in echogenicity in the liver suggesting some mild fatty infiltration. This is less pronounced than on the prior ultrasound. 3.No focal hepatic lesions are noted. 4.The portal venous system is patent and flow is directed towards the liver. 5.No significant free fluid noted in the upper abdomen. [facility]-[id number] Procedure Note Interface, Radiology Results Incoming - 04/02/2018 3:22 PM TECHNICAL MGR EXAMINATION: US HEPATIC CLINICAL HISTORY: elevated LFTs COMPARISON: September 24, 2017 ultrasound Impression: 1. There has been a prior cholecystectomy. The common bile duct is not dilated (4 mm). 2. There may be mild increase in echogenicity in the liver suggesting some mild fatty infiltration. This is less pronounced than on the prior ultrasound. 3. No focal hepatic lesions are noted. 4. The portal venous system is patent and flow is directed towards the liver. 5. No significant free fluid noted in the upper abdomen. [id number] Performing Organization Address [facility]/[place] [address] * GC By [employer] (04/02/2018 1:31 PM TECHNICAL MGR) [facility] Negative for Neisseria JAMIL gonorrhoeae. CONFUCIANIST Comment: HOSPITAL Specimen Information Specimen Source: Urine Specimen Site: Random void Specimen Urine - Random void Performing Organization Address [facility] Phone Number [facility] [place] [address] PATHOLOGY AND GENOMIC MEDICINE [address] * Hepatitis acute panel (04/02/2018 11:05 AM TECHNICAL MGR) Only the most recent of 2 results within the time period is included. [facility] Hepatitis A IgM Non-reactive Non-reactive [facility] Hepatitis B Non-reactive Non-reactive [facility] core IgM [facility] Hepatitis B Non-reactive Non-reactive [facility] surface Ag [facility] Hepatitis C Ab Non-reactive Non-reactive [facility] Specimen Serum Performing Organization Address [facility] Phone Number [facility] [place] [address] PATHOLOGY AND GENOMIC MEDICINE [address] * Hemoglobin & hematocrit (04/01/2018 6:15 PM TECHNICAL MGR) Only the most recent of 2 results within the time period is included. [facility] HGB 8.0 (L) 12.0 - 16.0 g/dL [facility] HCT 26.5 (L) 37.0 - 47.0 % [facility] Specimen Blood Performing Organization Address [facility] Phone Number [facility] [place] [address] PATHOLOGY AND GENOMIC MEDICINE [address] * MRI Brain W Wo Contrast (04/01/2018 3:56 PM TECHNICAL MGR) Specimen Narrative Performed At [facility] EXAMINATION: MRI BRAIN W WO CONTRAST CLINICAL HISTORY: Concern for AIRFRAME TECHNICIAN inflammation infection neoplasmseizure COMPARISON:MRI brain 10/25/2017. TECHNIQUE: Multiplanar and multisequence MRI imaging of the brain was obtained with and without contrast. FINDINGS: No significant interval change appearing since the prior MRI from 10/25/2017. No T2 or T2 FLAIR signal abnormalities identified. No susceptibility identified to suggest hemosiderin deposition from prior hemorrhage. No restricted diffusion identified to indicate recent infarct. No intra or extra-axial fluid collections identified. No mass, mass effect, or midline shift is seen. The basal ganglia, thalami, midbrain, jorge luis and cervicomedullary junction are unremarkable. The ventricles and sulci are unremarkable for patient's age.Sella turcica is normal in appearance. The basal cisterns are patent. The calvarium appears intact. The major intracranial vascular flow voids are present. No abnormal parenchymal or meningeal enhancement identified. The orbital contents are symmetric and unremarkable. The paranasal sinuses are unremarkable. The mastoid air cells and middle ear cavities are clear. IMPRESSION: No acute intracranial abnormality identified, unchanged when compared with prior MRI from 10/25/2017. [facility]-[id number] Procedure Note Interface, Radiology Results Incoming - 04/01/2018 4:04 PM TECHNICAL MGR EXAMINATION: MRI BRAIN W WO CONTRAST CLINICAL HISTORY: Concern for AIRFRAME TECHNICIAN inflammation infection neoplasm seizure COMPARISON: MRI brain 10/25/2017. TECHNIQUE: Multiplanar and multisequence MRI imaging of the brain was obtained with and without contrast. FINDINGS: No significant interval change appearing since the prior MRI from 10/25/2017. No T2 or T2 FLAIR signal abnormalities identified. No susceptibility identified to suggest hemosiderin deposition from prior hemorrhage. No restricted diffusion identified to indicate recent infarct. No intra or extra-axial fluid collections identified. No mass, mass effect, or midline shift is seen. The basal ganglia, thalami, midbrain, jorge luis and cervicomedullary junction are unremarkable. The ventricles and sulci are unremarkable for patient's age. Sella turcica is normal in appearance. The basal cisterns are patent. The calvarium appears intact. The major intracranial vascular flow voids are present. No abnormal parenchymal or meningeal enhancement identified. The orbital contents are symmetric and unremarkable. The paranasal sinuses are unremarkable. The mastoid air cells and middle ear cavities are clear. IMPRESSION: No acute intracranial abnormality identified, unchanged when compared with prior MRI from 10/25/2017. [facility] [place] [facility]-[id number] Performing Organization Address City/State/[place] [address] * Blood culture, aerobic & anaerobic (04/01/2018 11:10 AM TECHNICAL MGR) Only the most recent of 2 results within the time period is included. [facility] Blood culture No growth after 5 days of SPENCER isolate incubation. CONFUCIANIST Comment: HOSPITAL Specimen Information Specimen Source: Blood Specimen Site: Arm, left Specimen Blood - Arm, left Performing Organization Address City/[facility] Corporationcode Phone Number [facility] [place] [facility] DEPARTMENT OF [address] [place] [address] PATHOLOGY AND GENOMIC MEDICINE [address] * CBC hemogram (04/01/2018 11:10 AM TECHNICAL MGR) [facility] WBC 4.49 (L) 4.50 - 11.00 k/uL [facility] RBC 3.23 (L) 4.20 - 5.50 m/uL [facility] HGB 7.9 (L) 12.0 - 16.0 g/dL [facility] HCT 26.3 (L) 37.0 - 47.0 % [facility] MCV 81.4 (L) 82.0 - 100.0 fL [facility] MCH 24.5 (L) 27.0 - 34.0 pg [facility] MCHC 30.0 (L) 31.0 - 37.0 g/dL [facility] RDW - SD 55.9 (H) 37.0 - 55.0 fL [facility] MPV 10.9 8.8 - 13.2 fL [facility] Platelet count 270 150 - 400 k/uL [facility] Nucleated RBC 0.00 /100 WBC [facility] Specimen Blood Performing Organization Address [facility]/Zipcode Phone Number [facility] [place] [facility] DEPARTMENT OF [address] [place] [address] PATHOLOGY AND GENOMIC MEDICINE [address] * Serum electrophoresis (04/01/2018 11:10 AM TECHNICAL MGR) [facility] Protein 7.1 6.3 - 8.3 g/dL SPENCER Comment: [facility] [place] 4.6-7.0 g/dL 1 week 4.4-7.6 g/dL 7 months-1year 5.1-7.3 g/dL 1-2 years5.6-7 .5 g/dL >3 years6.0-8 .0 g/dL 18-150 6.3-8.3 g/dL SPE albumin 4.17 4.00 - 5.30 g/dL [facility] SPE alpha 1 0.17 0.10 - 0.25 g/dL [facility] SPE alpha 2 0.58 0.58 - 0.84 g/dL [facility] SPE beta 1.09 0.50 - 1.10 g/dL [facility] SPE gamma 1.09 0.60 - 1.30 g/dL [facility] SPE extended See CommentComment: An SPENCER interpretation essentially normal serum CONFUCIANIST protein study. HOSPITAL SPE See Comment SPENCER interpretation Comment: SAURAV Bowers, PhD; [facility] MD Sander; Jam Orellana, PhD; Yazan Park MD, PhD Specimen Serum Performing Organization Address City/State/Zipcode Phone Number [facility] [place] [address] PATHOLOGY AND GENOMIC MEDICINE [address] * Hemoglobin A1c (04/01/2018 11:10 AM TECHNICAL MGR) Hemoglobin A1C 5.2 4.0 - 5.6 % SPENCER Comment: CONFUCIANIST HbA1c cutoffs for diagnosing HOSPITAL diabetes: 4.0% - 5.6%=normal 5.7% - 6.4%=increased risk for diabetes (prediabetes) >=6.5%=diabetes Goals for glycemic control (ADA 2016) < 7.0%Target for non adults with diabetes. More or less stringent targets may be appropriate for individual patients. <7.5% Target for Children and adolescents with type 1 diabetes. Specimen Blood Performing Organization Address City/State/Zipcode Phone Number [facility] [place] [facility] DEPARTMENT OF [address] [place] [address] PATHOLOGY AND GENOMIC MEDICINE [address] * EEG (routine) (04/01/2018 9:00 AM TECHNICAL MGR) Narrative Performed At EEG EXTENDED 41-60 MINS Date of Service: 04/01/18 Awake Recording: The occipital dominant rhythm is 10-11 Hz. 18-22 Hz activity is present in all regions. Sleep Recording:No epileptiform activity was recorded. Hyperventilation: Not performed. Photic Stimulation: No abnormality elicited. Impression The background activity is within the range of normal variation. No lateralized or epileptiform activity was recorded. ICD-10 Code: R569 * HIV Ag/Ab combination (04/01/2018 7:30 AM TECHNICAL MGR) [facility] HIV Ag/Ab Non-reactive Non-reactive [facility] Specimen Blood Performing Organization Address City/[facility]/Zip[place] [address] PATHOLOGY AND GENOMIC MEDICINE [address] * Hepatitis Be Ab (04/01/2018 7:30 AM TECHNICAL MGR) [facility] Hepatitis Be Ab Negative Negative [facility] Comment: Performed by [facility], [address] [place] [address] [email or web address], Clayton Chambers MD - Lab. Director Specimen Serum Performing Organization Address [facility] Corporationcoid Phone Number [facility] [address] [phone] [facility] [address] [place] [address] * Hepatitis Be Ag (04/01/2018 7:30 AM TECHNICAL MGR) [facility] Hepatitis Be Ag Negative Negative [facility] Comment: Performed by [facility], [address] [place] [address] [email or web address], Clayton Chambers MD - Lab. Director Specimen Serum Performing Organization Address [facility]/Zipcode Phone Number [facility] [address] [place] [address] [facility] [address] [place] [address] * Sodium level, urine, random (04/01/2018 7:30 AM TECHNICAL MGR) [facility] Sodium, urine, 111 mEq/L [facility] Specimen Urine Performing Organization Address City/[facility]/Zipcode Phone Number [facility] [place] [facility] DEPARTMENT OF [address] [place] [address] PATHOLOGY AND GENOMIC MEDICINE [address] * Potassium, urine, random (04/01/2018 7:30 AM TECHNICAL MGR) Potassium, 29.4 mEq/L SPENCER urine, random [facility] Specimen Urine Performing Organization Address City/[facility] Corporationcoid Phone Number [facility] [place] [address] PATHOLOGY AND GENOMIC MEDICINE [address] * Chloride level, urine, random (04/01/2018 7:30 AM TECHNICAL MGR) Chloride, 98 mEq/L SP[facility]ER urine, random [facility] Specimen Urine Performing Organization Address [facility] Phone Number [facility] [place] [address] [facility] MEDICINE [facility] CONFUCIANIST[address] * Urine drugs of abuse screen (04/01/2018 7:30 AM TECHNICAL MGR) Amphetamine Negative SPENCER screen, urine [facility] Barbiturate Negative SPENCER screen, urine [facility] Benzodiazepine Negative SPENCER screen, urine [facility] Cannabinoid Negative SPENCER screen, urine [facility] Cocaine screen, Negative SPENCER urine [facility] Methadone Negative SPENCER metabolite CONFUCIANIST (EDDP), urine [facility] Opiates screen, Negative SPENCER urine [facility] Oxycodone Negative SPENCER screen, urine [facility] Phencyclidine Negative SPENCER screen, urine [facility] Tricyclic Positive (A) SPENCER screen, urine Comment: CONFUCIANIST Drug screen minimum HOSPITAL concentration of detectability Amphetamines 1000 ng/mL Barbiturates 200 ng/mL Benzodiazepines 300 ng/mL Cocaine 300 ng/mL Methadone 300 ng/mL Opiates 300 ng/mL Oxycodone 300 ng/mL Phencyclidine 25 ng/mL Cannabinoids 50 ng/mL Tricyclics 1000 ng/mL Negative test results indicates presumptive evidence of lack of clinically significant drug concentration in this urine specimen. Positive test results are presumptive evidence of clinically significant drug concentration in this urine specimen. Testing performed for medical purposes only. Specimen Urine Performing Organization Address [facility] Corporationcode Phone Number [facility] [place] [address] PATHOLOGY AND GENOMIC MEDICINE [address] * Hepatitis B surface antibody (04/01/2018 7:30 AM TECHNICAL MGR) Hepatitis B Non-reactive Non-reactive SPENCER surface Ab [facility] Specimen Blood Performing Organization Address City/[facility] Corporationcode Phone Number [facility] [place] [address] [facility] MEDICINE [address] * Lactic acid level (04/01/2018 7:30 AM TECHNICAL MGR) Only the most recent of 4 results within the time period is included. Lactic acid 1.6 0.5 - 2.2 mmol/L [facility] Specimen Plasma specimen Performing Organization Address City/[facility] Corporationcode Phone Number [facility] [place] [address] [facility] MEDICINE [address] * GGT (04/01/2018 7:30 AM TECHNICAL MGR) Only the most recent of 2 results within the time period is included. GGT 854 (H) 0 - 39 U/L [facility] Specimen Plasma specimen Performing Organization Address [facility] Phone Number [facility] [place] [address] [facility] MEDICINE [address] * Folate level (04/01/2018 7:30 AM TECHNICAL MGR) Only the most recent of 2 results within the time period is included. Folate 8.2 4.8 - 24.2 ng/mL [facility] Specimen Serum Performing Organization Address City/[facility] Corporationcode Phone Number [facility] [place] [address] [facility] MEDICINE [address] * Vitamin B12 level (04/01/2018 7:30 AM TECHNICAL MGR) Only the most recent of 2 results within the time period is included. Vitamin B12 791 211 - 946 pg/mL SPENCER Comment: CONFUCIANIST Significant overlap exists HOSPITAL between normal and deficiency states. However, most patients with deficiencies will have Serum B12 <200 pg/mL. Specimen Serum Performing Organization Address City/[facility]/Zipcode Phone Number [facility] DEPARTMENT [address] [facility] MEDICINE [address] * Lipid panel (04/01/2018 7:30 AM TECHNICAL MGR) Cholesterol 159 <200 mg/dL [facility] Triglycerides 59 <150 mg/dL [facility] HDL cholesterol 42 >40 mg/dL [facility] LDL cholesterol 109 (H)Comment: Result <100 mg/dL SPENCER obtained by direct LDL [facility] Lipid panel [facility] interpretation Comment: CONFUCIANIST Total Cholesterol HOSPITAL (mg/dL) <200 Desirable 200-239Borderline -high >=240High Triglycerides (mg/dL) <150 Normal 150-199Borderline -high 200-499High >=500Very high HDL Cholesterol (mg/dL) <40Low (male) <40Low (female) LDL Cholesterol (mg/dL) <100 Optimal 100-129Near or above optimal 130-159Borderline -high 160-189High >=190Very high Risk Catergories that modify LDL goals. Risk Catergories LDL goal (mg/dL) CHD and CHD risk equivalent<100 (10-year risk >20%) Multiple (2+) risk factors <130 (10-year risk=<20%) 0-1 risk factors <160 (<10-year risk) Defining levels of lipids in metabolic syndrome Triglycerides >=150 mg/dL HDL Cholesterol Men <40 mg/dL Women <40 mg/dL Non-HDL cholesterol is a second target for therapy in persons with high triglycerides (>=200 mg/dL) Specimen Plasma specimen Performing Organization Address City/State/Zipcode Phone Number [facility] DEPARTMENT OF [address] [place] [address] [address] [facility] MEDICINE [address] * Prealbumin level (04/01/2018 3:45 AM TECHNICAL MGR) Prealbumin 21 16 - 32 mg/dL [facility] Specimen Serum Performing Organization Address City/State/Zipcode Phone Number [facility] DEPARTMENT [address] [facility] MEDICINE [address] * Lactic acid level, SEPSIS - Now and repeat 2x every 3 hours (04/01/2018 1:10 AM TECHNICAL MGR) Only the most recent of 2 results within the time period is included. Lactic acid 2.4 (H) 0.5 - 2.2 mmol/L [facility] Specimen Blood Performing Organization Address City/State/Zipcode Phone Number [facility] DEPARTMENT OF [address] [place] [address] PATHOLOGY AND GENOMIC MEDICINE [id number] [place] [address] HOSPITAL * CTA Abdomen Pelvis W And Or Wo Contrast (04/01/2018 1:00 AM TECHNICAL MGR) Specimen Narrative Performed At CT ANGIOGRAM ABDOMEN PELVIS W AND OR WO CONTRAST [facility] CLINICAL INDICATION: abdominal painblood lossrecent trauma to area TECHNIQUE: CT angiography of the abdomen and pelvis was performed prior to and following the intravenous administration of iodinated contrast material with multiplanar reconstructions.In addition, postprocessed 3D MIP and volume rendered images were also performed specifically for CT angiography.CT imaging was performed with iterative reconstruction technique and/or automated exposure control to reduce radiation dose. COMPARISON:CT performed on 05/23/2005. FINDINGS: LOWER THORAX:Aside from mild bibasilar atelectasis, the visualized lungs are clear. LIVER:Normal. BILIARY:There are surgical changes related to cholecystectomy. There is no abnormal biliary ductal dilation. SPLEEN:Normal. PANCREAS:Normal. ADRENALS:Normal. KIDNEYS:No mass or hydronephrosis. GI:Large and small bowel are normal in caliber.There are no inflammatory changes. VASCULAR:There is mild calcified atherosclerotic disease of the abdominal aorta. The abdominal aorta is normal in caliber and without evidence of dissection or hemodynamically significant stenosis. No hemodynamically significant stenosis of the major intra-abdominal arteries is identified. There is a circumaortic left renal vein. LYMPH NODES:There are subcentimeter retroperitoneal and chaim hepatis lymph nodes, which are nonspecific but likely reactive in nature. PELVIS:The urinary bladder and uterus are normal in appearance. There is a cystic lesion within the right ovary that measures 2.3 cm in size. BONES:There are no acute osseous abnormalities. OTHER: There is no ascites, hemoperitoneum, or organized intra-abdominal collection. There is no pneumoperitoneum. IMPRESSION: 1. No hemoperitoneum or intra-abdominal hematoma is identified. 2. No acute intra-abdominal abnormality. [facility]-[id number] Procedure Note Interface, Radiology Results Incoming - 04/01/2018 1:[address] ANGIOGRAM ABDOMEN PELVIS W AND OR WO CONTRAST CLINICAL INDICATION: abdominal pain blood loss recent trauma to area TECHNIQUE: CT angiography of the abdomen and pelvis was performed prior to and following the intravenous administration of iodinated contrast material with multiplanar reconstructions. In addition, postprocessed 3D MIP and volume rendered images were also performed specifically for CT angiography. CT imaging was performed with iterative reconstruction technique and/or automated exposure control to reduce radiation dose. COMPARISON: CT performed on 05/23/2005. FINDINGS: LOWER THORAX: Aside from mild bibasilar atelectasis, the visualized lungs are clear. LIVER: Normal. BILIARY: There are surgical changes related to cholecystectomy. There is no abnormal biliary ductal dilation. SPLEEN: Normal. PANCREAS: Normal. ADRENALS: Normal. KIDNEYS: No mass or hydronephrosis. GI: Large and small bowel are normal in caliber. There are no inflammatory changes. VASCULAR: There is mild calcified atherosclerotic disease of the abdominal aorta. The abdominal aorta is normal in caliber and without evidence of dissection or hemodynamically significant stenosis. No hemodynamically significant stenosis of the major intra-abdominal arteries is identified. There is a circumaortic left renal vein. LYMPH NODES: There are subcentimeter retroperitoneal and chaim hepatis lymph nodes, which are nonspecific but likely reactive in nature. PELVIS: The urinary bladder and uterus are normal in appearance. There is a cystic lesion within the right ovary that measures 2.3 cm in size. BONES: There are no acute osseous abnormalities. OTHER: There is no ascites, hemoperitoneum, or organized intra-abdominal collection. There is no pneumoperitoneum. IMPRESSION: 1. No hemoperitoneum or intra-abdominal hematoma is identified. 2. No acute intra-abdominal abnormality. [facility]-[id number] Performing Organization Address City/State/Zipcode Phone Number [facility] [address] [place] [address] * Hepatitis C antibody (04/01/2018 12:53 AM TECHNICAL MGR) Hepatitis C Ab Non-reactive Non-reactive [facility] Specimen Blood Performing Organization Address City/State/Zipcode Phone Number [facility] DEPARTMENT OF [address] [place] [address] PATHOLOGY AND GENOMIC MEDICINE [address] * Total iron binding capacity (03/31/2018 9:51 PM TECHNICAL MGR) [facility] Iron level 25 (L) 37 - 145 ug/dL [facility] Iron binding 564 (H) 200 - 400 ug/dL [facility] [place] [place] % Saturation 4.4 (L) 15.0 - 38.0 % [facility] Specimen Plasma specimen Performing Organization Address City/[facility] Corporationcode Phone Number [facility] [place] [address] [facility] MEDICINE [address] * Peripheral smear (03/31/2018 9:51 PM TECHNICAL MGR) [facility] Peripheral Done SP[facility] smear Comment: CONFUCIANIST Peripheral smear is located in HOSPITAL Hematology Laboratory, second floor of [facility]. Specimen Blood Performing Organization Address [facility] Corporationcode Phone Number [facility] [place] [address] [facility] MEDICINE [address] * Reticulocyte count (03/31/2018 9:51 PM TECHNICAL MGR) [facility] Retic %, auto 1.5 0.5 - 2.1 % [facility] Retic absolute, 0.0422 0.0210 - 0.1155 m/uL [facility] Specimen Blood Performing Organization Address [facility] Phone Number [facility] [place] [address] [facility] MEDICINE [address] * Thyroid stimulating hormone (03/31/2018 9:51 PM TECHNICAL MGR) Only the most recent of 3 results within the time period is included. [facility] TSH 1.60 0.27 - 4.20 uIU/mL [facility] Specimen Plasma specimen Performing Organization Address City/[facility] Corporationcode Phone Number [facility] [address] [facility] MEDICINE [address] * LDH (03/31/2018 9:51 PM TECHNICAL MGR) [facility] LDH 181 87 - 225 U/L [facility] Specimen Plasma specimen Performing Organization Address City/[facility]/Zipcode Phone Number [facility] [place] [address] [facility] MEDICINE [address] * Haptoglobin (03/31/2018 9:51 PM TECHNICAL MGR) Haptoglobin 107 30 - 200 mg/dL [facility] Specimen Plasma specimen Performing Organization Address City/[facility] Corporationcode Phone Number [facility] [place] [address] [facility] MEDICINE [address] * Ferritin level (03/31/2018 9:51 PM TECHNICAL MGR) Ferritin level 17 13 - 150 ng/mL [facility] Specimen Plasma specimen Performing Organization Address [facility] Phone Number [facility] [place] [address] [facility] MEDICINE [address] * Prepare RBC, 2 Units (03/31/2018 8:54 PM TECHNICAL MGR) Product name Red Blood Cells -1, Leukored [facility] Unit number [id number] [facility] Product code [id number] [facility] Dispense status Transfused [facility] Blood [id number] SPENCER expiration date [facility] Blood type code 7300 [facility] Blood type B POSITIVE [facility] Product name Red Blood Cells -1, Leukored [facility] Unit number [id number] [facility] Product code [id number] [facility] Dispense status Transfused [facility] Blood [id number] SPENCER expiration date [facility] Blood type code 7300 [facility] Blood type B POSITIVE [facility] Specimen Performing Organization Address City/[facility]/Zipcode Phone Number [facility] [place] [address] [facility] MEDICINE [address] * Type and screen (03/31/2018 8:54 PM TECHNICAL MGR) ABO grouping B [facility] Rh type POS [facility] Antibody screen NEG SPENCER (gel) [facility] Specimen Blood Performing Organization Address City/State/Zipcode Phone Number [facility] DEPARTMENT OF [address] [place] [address] PATHOLOGY AND GENOMIC MEDICINE [facility] CONFUCIANIST [address] * CRITICAL CARE (03/31/2018 7:17 PM TECHNICAL MGR) Narrative Performed At Sulma Antoine MD 03/31/2018 11:28 PM Critical Care Performed by: Sulma Antoine MD Authorized by: Sulma Antoine MD Critical care provider statement: Critical care time (minutes):35 Critical care time was exclusive of:Separately billable procedures and treating other patients and teaching time Critical care was necessary to treat or prevent imminent or life-threatening deterioration of the following conditions: severe anemia requiring blood transfusion in ER. Critical care was time spent personally by me on the following activities:Blood draw for specimens, ordering and performing treatments and interventions, ordering and review of laboratory studies, development of treatment plan with patient or surrogate, discussions with consultants, ordering and review of radiographic studies, pulse oximetry, discussions with primary provider, evaluation of patient's response to treatment, re-evaluation of patient's condition, review of old charts and examination of patient Lb 'yes' if you are taking over critical care for this patient from another provider.: no * Estimated GFR (10/29/2017 4:29 AM CDT) Only the most recent of 7 results within the time period is included. GFR Non Af Amer >90 mL/min/1.73 m2 [facility] DEPARTMENT OF PATHOLOGY AND GENOMIC MEDICINE GFR Af Amer >90 mL/min/1.73 m2 [facility] Comment: DEPARTMENT OF Chronic kidney disease: <60 PATHOLOGY AND mL/min/1.73m2 GENOMIC Kidney failure: <15 MEDICINE mL/min/1.73m2 The estimated GFR is calculated from the IDMS-traceable Modification of Diet in Renal Disease Equation. The accuracy of the calculation is poor when the creatinine is normal. Calculated values >90 mL/min/1.73m2 are not reported. This equation has not been validated in children (<18 years), women, the elderly (>70 years), or ethnic groups other than Caucasians and Americans. Specimen Plasma specimen Performing Organization Address City/State/Zipcode Phone Number [facility] [place] [place] [address] [place] [address] PATHOLOGY AND GENOMIC MEDICINE * Uric acid level (10/27/2017 4:30 AM CDT) Pathologist [facility] Uric acid 6.3 (H) 2.4 - 5.7 mg/dL [facility] DEPARTMENT OF PATHOLOGY AND GENOMIC MEDICINE Specimen Plasma specimen Performing Organization Address City/[facility]/Zipcode Phone Number [facility] [place] [address] [place] [address] PATHOLOGY AND GENOMIC MEDICINE * Myoglobin (10/26/2017 12:16 PM CDT) Pathologist [facility] Myoglobin 134 (H) 21 - 72 ng/mL [facility] DEPARTMENT OF PATHOLOGY AND GENOMIC MEDICINE Specimen Plasma specimen Performing Organization Address City/[facility]/Zipcode Phone Number [facility] DEPARTMENT OF [address] [place] [address] PATHOLOGY AND GENOMIC MEDICINE * Aldolase, serum (10/26/2017 12:16 PM CDT) Pathologist [facility] Aldolase 12.8 (H) 1.5 - 8.1 U/L [facility] Comment: REFERENCE INTERVAL: Aldolase Access complete set of age- and/or gender-specific reference intervals for this test in the [facility] Test Directory ([employer]). Performed by [facility], [address] [place] [address] [email or web address], Clayton Chambers MD - Lab. Director Specimen Serum Performing Organization Address City/[facility] Corporation[facility] Phone Number [facility] [address] [place] [address] * Echocardiogram complete w contrast and 3D if needed (10/25/2017 5:00 PM CDT) Velocity Ratio 0.67 m/s [facility] (V1/V2) IVS,d 0.70 cm [facility] Ao root annulus 2.98 cm [facility] EF 54.95 % [facility] LA volume 36.0 cm3 [facility] LVPWD,d 0.98 cm [facility] AoV Mean PG 6.60 mmHg [facility] AV LVOT peak 6.09 mmHg [facility] gradient MV valve area p 4.90 cm2 [facility] 1/2 method E/A ratio 1.94 [facility] E wave 160.30 msec [facility] decelartion time LVOT Diam,S 2.04 cm [facility] LVOT area 3.27 cm2 [facility] LVOT Vmax 1.23 m/s [facility] LVOT VTI 0.21 m [facility] AoV Peak PG 13.38 mmHg [facility] MV Peak E Ashok 0.91 m/s [facility] MV stenosis 44.87 ms [facility] pressure 1/2 time MV Peak A Ashok 0.47 m/s [facility] LV Vol,s A2C 32.09 mL [facility] LV Vol,d A2C 87.25 mL [facility] AoV Area, Vmax 2.21 cm2 [facility] AoV Area, VTI 2.04 cm2 [facility] AoV Vmax 1.83 m/s [facility] LA Area d A4C 26 cm2 [facility] LV,d 4.29 cm [facility] LV,s 3.07 cm [facility] LV Vol,d A4C 67.14 ml [facility] LV Vol,s A4C 23.19 ml [facility] RVSP (TR) 34.66 mmHg [facility] TR Vpeak 2.72 mm/s [facility] MV E A ratio 1.94 mmHg [facility] RA pressure 5.00 mmHg [facility] TR pk grad 29.66 mmHg [facility] MR peak grad 50.28 mmHg [facility] RVSP 34.66 mmHg [facility] LV SYS VOL 37.12 ml [facility] LV QUIGLEY VOL 82.39 ml [facility] LA diam s 3.00 cm [facility] LA Vol MOD A4C 26.34 ml [facility] LV SV Teich 2D 45.27 ml [facility] LVOT SI 40.71 ml/m2 [facility] AoV Cusp sep 1.67 [facility] Aortic Root 3.00 cm [facility] AoV Vmn 1.20 [facility] IVS s 2D 1.21 [facility] LA Ao Ratio 1.00 [facility] Mmode D E excurs 2.10 [facility] E f slope 0.17 [facility] E prime lat 0.15 [facility] E nba sept 0.12 [facility] PV acc T slope 6.30 [facility] PV AT 128.03 msec [facility] AoV VTI 0.34 m [facility] LV EF,A2C 63.22 % [facility] LV EF,A4C 65.46 % [facility] LV EF,BP 64.16 % [facility] [place],d A2C 7.73 cm [facility] [place],d A4C 6.75 cm [facility] [place],s A2C 6.19 cm [facility] [place],s A4C 5.36 cm [facility] LV SV,A2C 55.16 % [facility] LV SV,A4C 43.94 % [facility] LV Vol,d BP 81.39 ml [facility] LV Vol,s BP 29.17 nl [facility] MR Vmax 3.55 m/s [facility] LVOT Vmn 0.72 [facility] Pt Size 165.10 [facility] Pt Wt 61.23 [facility] LVOT mean grad 2.47 mmHg [facility] LVPW s PLAX 1.24 cm [facility] MV Decel slope 5.69 m/s2 [facility] Specimen Narrative Performed At [facility] The left ventricle chamber size is normal. Left Ventricular ejection fraction is 55 - 60%. No pericardial effusion Performing Organization Address [facility] Corporationcoid Phone Number [facility] [address] [place] [address] * MRI Brain Wo Contrast (10/25/2017 11:50 AM CDT) Specimen Narrative Performed At EXAMINATION:MRI BRAIN WO CONTRAST [facility] CLINICAL HISTORY:SEIZURE COMPARISON:None. FINDINGS: 1. Diffusion images demonstrate no evidence of acute ischemia. 2.Conventional images demonstrate no significant microvascular white matter changes. There is mild cerebral cortical volume loss and cerebellar volume loss. 3.There is minimal mucosal thickening or fluid in the mastoid on the right. There is extremely minimal mucosal thickening in the ethmoid sinus, sphenoid sinus and left maxillary sinus. IMPRESSION: No acute abnormality demonstrated. No change from the prior study. [facility]-[id number] Procedure Note Hm Interface, Radiology Results Incoming - 10/25/2017 12:07 PM CDT EXAMINATION: MRI BRAIN WO CONTRAST CLINICAL HISTORY: SEIZURE COMPARISON: None. FINDINGS: 1. Diffusion images demonstrate no evidence of acute ischemia. 2. Conventional images demonstrate no significant microvascular white matter changes. There is mild cerebral cortical volume loss and cerebellar volume loss. 3. There is minimal mucosal thickening or fluid in the mastoid on the right. There is extremely minimal mucosal thickening in the ethmoid sinus, sphenoid sinus and left maxillary sinus. IMPRESSION: No acute abnormality demonstrated. No change from the prior study. [facility]-[id number] Performing Organization Address City/State/Zipcode Phone Number [facility] [address] [place] [address] * CT Angiogram Pe Chest (10/25/2017 12:19 AM CDT) Specimen Narrative Performed At EXAMINATION:CT ANGIOGRAM PE CHEST [facility] CLINICAL HISTORY: chest paindyspneaelevated d-dimer TECHNIQUE:CT angiographic images of the chest were obtained during intravenous administration of iodinated contrast. Computerized reformatted images and 3-D MIP images were also obtained and archived (CT pulmonary embolus protocol).CT scans are performed using radiation dose reduction techniques.Technical factors are evaluated and adjusted to ensure appropriate moderation of exposure.Automated dose management technology is applied to adjust radiation exposure while achieving a diagnostic quality image. COMPARISON:None. Findings: Suboptimal bolus limits evaluation for pulmonary embolus. There are no filling defects within the pulmonary arterial system to suggest a pulmonary embolus. No dissection or aneurysm is seen. Mild bilateral dependent atelectasis is seen. No consolidation or pleural effusion is seen. No pneumothorax is seen. No pulmonary mass or nodule is seen. No mediastinal hematoma or lymphadenopathy is seen. Visualized upper abdomen shows no acute abnormality. IMPRESSION: 1. Suboptimal bolus but no evidence of pulmonary embolus. No acute abnormality identified in the chest. [facility]-[id number] Procedure Note Interface, Radiology Results Incoming - 10/25/2017 12:27 AM CDT EXAMINATION: CT ANGIOGRAM PE CHEST CLINICAL HISTORY: chest pain dyspnea elevated d-dimer TECHNIQUE: CT angiographic images of the chest were obtained during intravenous administration of iodinated contrast. Computerized reformatted images and 3-D MIP images were also obtained and archived (CT pulmonary embolus protocol). CT scans are performed using radiation dose reduction techniques. Technical factors are evaluated and adjusted to ensure appropriate moderation of exposure. Automated dose management technology is applied to adjust radiation exposure while achieving a diagnostic quality image. COMPARISON: None. Findings: Suboptimal bolus limits evaluation for pulmonary embolus. There are no filling defects within the pulmonary arterial system to suggest a pulmonary embolus. No dissection or aneurysm is seen. Mild bilateral dependent atelectasis is seen. No consolidation or pleural effusion is seen. No pneumothorax is seen. No pulmonary mass or nodule is seen. No mediastinal hematoma or lymphadenopathy is seen. Visualized upper abdomen shows no acute abnormality. IMPRESSION: 1. Suboptimal bolus but no evidence of pulmonary embolus. No acute abnormality identified in the chest. [id number] Performing Organization Address [facility]/Zipcode Phone Number [facility] [address] [place] [address] * D-dimer (10/24/2017 10:20 PM CDT) Pathologist [facility] D-dimer 1.71 (H) 0.00 - 0.40 ug/mL [facility] Comment: FEU DEPARTMENT OF Units are ug/ml Fibrinogen PATHOLOGY AND Equivalent Unit. GENOMIC When combined with low MEDICINE clinical probability, D-dimer results of less than 0.5 ug/ml FEU have a good negativepredictive value in excluding PE or DVT. For D-dimer results greater than 0.5ug/ml FEU further testing is indicated if PE or DVT is suspectedclinically. Elevated D-dimer results have been reported in DVT, PE, and DIC cases and may indicate the presence of a clot. D-dimer results may be elevated due to old age, , inflammatory diseases, trauma, post-operative states, sepsis, and malignancies. Specimen Blood Performing Organization Address [facility] Phone Number [facility] DEPARTMENT [address] [place] [address] PATHOLOGY AND GENOMIC MEDICINE * hCG qualitative, urine screen (10/24/2017 9:57 PM CDT) Pathologist [facility] hCG Negative Negative [facility] qualitative, Comment: DEPARTMENT OF urine The manufacturers stated PATHOLOGY AND sensitivity of HcG test for GENOMIC serum is >/=10 MEDICINE mIU/ml and urine is >/=20mIU/ml. Specimen Urine Performing Organization Address [facility] Number [facility] DEPARTMENT [address] [place] [address] PATHOLOGY AND GENOMIC MEDICINE * Gram stain (10/24/2017 9:57 PM CDT) Gram stain No WBC's [facility] DEPARTMENT result Moderate Gram negative rods OF PATHOLOGY Comment: AND GENOMIC Specimen Information MEDICINE Specimen Source: Urine Specimen Site: Clean catch Specimen Urine Performing Organization Address [facility]/Zipcode Phone Number [facility] DEPARTMENT OF [address] [place] [address] PATHOLOGY AND GENOMIC MEDICINE * XR Chest 2 Vw (10/24/2017 9:45 PM CDT) Specimen Narrative Performed At EXAMINATION:XR CHEST 2 VW [facility] CLINICAL HISTORY:Chest Pain COMPARISON:06/05/2005 IMPRESSION: No acute cardiopulmonary disease. FINDINGS: The cardiomediastinal silhouette, lungs, and regional skeletal structures are within normal limits for age. The patient is status post cholecystectomy. Procedure Note Hm Interface, Radiology Results Incoming - 10/24/2017 9:50 PM CDT EXAMINATION: XR CHEST 2 VW CLINICAL HISTORY: Chest Pain COMPARISON: 06/05/2005 IMPRESSION: No acute cardiopulmonary disease. FINDINGS: The cardiomediastinal silhouette, lungs, and regional skeletal structures are within normal limits for age. The patient is status post cholecystectomy. Performing Organization Address City/State/Zipcode Phone Number [facility] [address] [place] [address] * CRITICAL CARE (10/24/2017 9:06 PM CDT) Narrative Performed At Checo Xie MD 10/25/20176:22 AM Critical Care Performed by: CHECO XIE Authorized by: CHECO XIE Critical care provider statement: Critical care time (minutes):45 Critical care time was exclusive of:Separately billable procedures and treating other patients Critical care was necessary to treat or prevent imminent or life-threatening deterioration of the following conditions:Metabolic crisis and dehydration (seizure, electrolyte abnormalities including hyponatremia, hypokalemia, hypomagnesemia, hypophosphatemia, hypertensive urgency) Critical care was time spent personally by me on the following activities:Development of treatment plan with patient or surrogate, obtaining history from patient or surrogate, examination of patient, evaluation of patient's response to treatment, discussions with primary provider, discussions with consultants, ordering and performing treatments and interventions, ordering and review of laboratory studies, ordering and review of radiographic studies, pulse oximetry, re-evaluation of patient's condition and review of old charts * MRI Foot Wo Contrast Left (09/24/2017 7:01 PM CDT) Specimen Narrative Performed At EXAMINATION:MRI FOOT WO CONTRAST LEFT [facility] CLINICAL HISTORY:OSTEOMYELITISFOOT COMPARISON:None. TECHNIQUE: Multiplanar and multisequence MR images of the forefoot are submitted without the administration of gadolinium. IMPRESSION: 1.Regional marrow is within normal limits. A small amount of soft tissue tissue edema is seen along the superior and lateral aspect of the foot. A marker is placed along the posterior dorsal foot. There is no associated soft tissue edema, mass, or underlying marrow signal change at the location of this marker. There are arthritic changes of the first interphalangeal joint with some mild marrow edema and subchondral sclerosis present. No focus compatible with osteomyelitis is seen. [facility]-[id number] Procedure Note Hm Interface, Radiology Results - 09/24/2017 8:50 PM CDT EXAMINATION: MRI FOOT WO CONTRAST LEFT CLINICAL HISTORY: OSTEOMYELITIS FOOT COMPARISON: None. TECHNIQUE: Multiplanar and multisequence MR images of the forefoot are submitted without the administration of gadolinium. IMPRESSION: 1. Regional marrow is within normal limits. A small amount of soft tissue tissue edema is seen along the superior and lateral aspect of the foot. A marker is placed along the posterior dorsal foot. There is no associated soft tissue edema, mass, or underlying marrow signal change at the location of this marker. There are arthritic changes of the first interphalangeal joint with some mild marrow edema and subchondral sclerosis present. No focus compatible with osteomyelitis is seen. [facility]-[id number] Performing Organization Address City/[facility]/Zipcode Phone Number [facility] [address] [place] [address] * Sedimentation rate (09/24/2017 5:04 AM CDT) Sedimentation 56 (H) 0 - 20 mm/hr [facility] rate DEPARTMENT OF PATHOLOGY AND GENOMIC MEDICINE Specimen Blood Performing Organization Address [facility]/Zipcode Phone Number [facility] DEPARTMENT [address] [place] [address] PATHOLOGY AND GENOMIC MEDICINE * XR Foot 3+ Vw Right (09/23/2017 7:13 PM CDT) Specimen Narrative Performed At PROCEDURE:XR FOOT 3VW RIGHT [facility] CLINICAL HISTORY:cellulitis COMPARISON:September 19, 2017 TECHNIQUE: 3 views of the right foot were performed in the frontal, oblique, and lateral projections FINDINGS: No acute fracture, dislocation, bone destruction, or periosteal reaction is demonstrated about the foot. Soft tissue swelling is seen in the right great toe. No underlying bone destruction is seen. However moderate narrowing of the IP joint of the great toe is noted with few subchondral erosions. Soft tissue swelling is also noted on the dorsum of the distal right forefoot. No radiopaque foreign body is demonstrated in the soft tissues about the foot.. IMPRESSION: Abnormal study. Soft tissue swelling about the right great toe which could represent cellulitis without associated osteomyelitis. Degenerative arthropathy about the IP joint of the right great toe. [id number] . Procedure Note Interface, Radiology Results Incoming - 09/23/2017 7:20 PM CDT PROCEDURE: XR FOOT 3 VW RIGHT CLINICAL HISTORY: cellulitis COMPARISON: September 19, 2017 TECHNIQUE: 3 views of the right foot were performed in the frontal, oblique, and lateral projections FINDINGS: No acute fracture, dislocation, bone destruction, or periosteal reaction is demonstrated about the foot. Soft tissue swelling is seen in the right great toe. No underlying bone destruction is seen. However moderate narrowing of the IP joint of the great toe is noted with few subchondral erosions. Soft tissue swelling is also noted on the dorsum of the distal right forefoot. No radiopaque foreign body is demonstrated in the soft tissues about the foot.. IMPRESSION: Abnormal study. Soft tissue swelling about the right great toe which could represent cellulitis without associated osteomyelitis. Degenerative arthropathy about the IP joint of the right great toe. [id number] . Performing Organization Address City/State/Zipcode Phone Number [facility] [address] [place] [address] after 09/22/2017 Advance Directives Patient has advance care planning documents, and code status on file. For more i nformation, please contact: Omero Waters [address] [place] [address] Date Inactivated Comments Code Status Date Activated 04/04/2018 3:22 PM Full Code 04/03/2018 9:54 AM Code Status decision reached by: Patient
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
--- OUTSIDE RECORDS SUMMARY | 2018-09-23 16:00 | XMS REPORT ---
[facility] Address Unknown Phone Unavailable Care Team Providers Care [employer] Manager Name Role Phone Unavailable Unavailable Payers Payer Name Policy Type Policy Number Effective Date Expiration Date Problems This patient has no known problems. Allergies, Adverse Reactions, Alerts Allergy Name Allergy Type Status Severity Reaction(s) Onset Date Inactive Date Treating Clinician Comments Sulfa (Sulfonamide Antibiotics) DA Active U 2018-04-25 00:00:00 sulfamethoxazole DA Active U 2018-04-25 00:00:00 Sulfa (Sulfonamide Antibiotics) DA Active U 2018-03-12 00:00:00 sulfamethoxazole DA Active U 2018-03-12 00:00:00 Sulfa (Sulfonamide Antibiotics) DA Active U 2001-05-24 00:00:00 sulfamethoxazole DA Active U 2001-05-24 00:00:00 BACTRIM DA Active U 2001-05-24 00:00:00 No Known Contrast Allergies DA Active U 2001-05-24 00:00:00 No Known Food Allergies DA Active U 2001-05-24 00:00:00 No Known Other Allergies DA Active U 2001-05-24 00:00:00 SULFA DRUGS DA Active U 2001-05-24 00:00:00 Medications This patient has no known medications. Encounters Start Date/Time End Date/Time Encounter Type Admission Type Attending Clinicians Care Facility Care Department Encounter ID 2018-02-16 17:17:00 2018-02-16 17:17:00 Emergency [facility] [id number] Results Test Description Test Time Test Comments Text Results Atomic Results Result Comments COMPREHENSIVE METABOLIC PANEL 2018-05-30 18:32:00 SODIUM (test code=NA) 140 mEq/L 134-147 POTASSIUM (test code=K) 3.9 mEq/L 3.4-5.0 CHLORIDE (test code=CL) 107 mEq/L 100-108 CARBON DIOXIDE (test code=CO2) 24 mEq/L 21-33 ANION GAP (test code=GAP) 13 0-20 GLUCOSE (test code=GLU) 91 mg/dL 70-110 BLOOD UREA NITROGEN (test code=BUN) 7 mg/dL 7-18 GLOMERULAR FILTRATION RATE (test code=GFR) 110.2 95-105 Units of measure=ml/min/1.73 m2 CREATININE (test code=CREAT) 0.6 mg/dL 0.6-1.3 TOTAL PROTEIN (test code=PROT) 9.7 g/dL 6.4-8.2 ALBUMIN (test code=ALB) 3.80 g/dL 3.4-5.0 CALCIUM (test code=CA) 8.6 mg/dL 8.0-10.5 BILIRUBIN TOTAL (test code=BILT) 0.30 mg/dL 0.0-1.0 SGOT/AST (test code=AST) 150 IUnit/L 15-37 SGPT/ALT (test code=ALT) 53 IUnit/L 15-65 ALKALINE PHOSPHATASE TOTAL (test code=ALKP) 412 IUnit/L 20-125 [id number] 18:32:00* Test Item Value Reference Range Comments LIPASE (test code=LIP) 142 IUnit/L 73-393 HCG SERUM [id number] 18:32:00* Test Item Value Reference Range Comments HCG SERUM QUAL (test code=HCGQL) SERUM NEGATIVE NEGATIVE COMPREHENSIVE METABOLIC [id number] 18:31:00* Test Item Value Reference Range Comments SODIUM (test code=NA) 140 mEq/L 134-147 POTASSIUM (test code=K) 3.9 mEq/L 3.4-5.0 CHLORIDE (test code=CL) 107 mEq/L 100-108 CARBON DIOXIDE (test code=CO2) 24 mEq/L 21-33 ANION GAP (test code=GAP) 13 0-20 GLUCOSE (test code=GLU) 91 mg/dL 70-110 BLOOD UREA NITROGEN (test code=BUN) 7 mg/dL 7-18 GLOMERULAR FILTRATION RATE (test code=GFR) 110.2 95-105 Units of measure=ml/min/1.73 m2 CREATININE (test code=CREAT) 0.6 mg/dL 0.6-1.3 TOTAL PROTEIN (test code=PROT) 9.7 g/dL 6.4-8.2 ALBUMIN (test code=ALB) 3.80 g/dL 3.4-5.0 CALCIUM (test code=CA) 8.6 mg/dL 8.0-10.5 BILIRUBIN TOTAL (test code=BILT) 0.30 mg/dL 0.0-1.0 SGOT/AST (test code=AST) 150 IUnit/L 15-37 SGPT/ALT (test code=ALT) 53 IUnit/L 15-65 ALKALINE PHOSPHATASE TOTAL (test code=ALKP) 412 IUnit/L 20-125 [id number] 18:31:00* Test Item Value Reference Range Comments LIPASE (test code=LIP) 142 IUnit/L 73-393 HCG SERUM [id number] 18:31:00* Test Item Value Reference Range Comments HCG SERUM QUAL (test code=HCGQL) NEGATIVE COMPREHENSIVE METABOLIC [id number] 18:29:00* Test Item Value Reference Range Comments SODIUM (test code=NA) 140 mEq/L 134-147 POTASSIUM (test code=K) 3.9 mEq/L 3.4-5.0 CHLORIDE (test code=CL) 107 mEq/L 100-108 CARBON DIOXIDE (test code=CO2) 24 mEq/L 21-33 ANION GAP (test code=GAP) 13 0-20 GLUCOSE (test code=GLU) 91 mg/dL 70-110 BLOOD UREA NITROGEN (test code=BUN) 7 mg/dL 7-18 GLOMERULAR FILTRATION RATE (test code=GFR) 110.2 95-105 Units of measure=ml/min/1.73 m2 CREATININE (test code=CREAT) 0.6 mg/dL 0.6-1.3 TOTAL PROTEIN (test code=PROT) g/dL 6.4-8.2 ALBUMIN (test code=ALB) 3.80 g/dL 3.4-5.0 CALCIUM (test code=CA) 8.6 mg/dL 8.0-10.5 BILIRUBIN TOTAL (test code=BILT) mg/dL 0.0-1.0 SGOT/AST (test code=AST) 150 IUnit/L 15-37 SGPT/ALT (test code=ALT) 53 IUnit/L 15-65 ALKALINE PHOSPHATASE TOTAL (test code=ALKP) IUnit/L 20-125 [id number] 18:29:00* Test Item Value Reference Range Comments LIPASE (test code=LIP) 142 IUnit/L 73-393 HCG SERUM [id number] 18:29:00* Test Item Value Reference Range Comments HCG SERUM QUAL (test code=HCGQL) NEGATIVE URINALYSIS [id number] 18:22:00* Test Item Value Reference Range Comments UA COLOR (test code=COLU) YELLOW YEL/STRAW UA APPEARANCE (test code=APPU) CLEAR CLEAR UA GLUCOSE DIPSTICK (test code=DGLUU) NEGATIVE NEGATIVE UA BILIRUBIN DIPSTICK (test code=BILU) NEGATIVE NEGATIVE UA KETONE DIPSTICK (test code=KETU) NEGATIVE NEGATIVE UA SPECIFIC GRAVITY (test code=SGU) 1.012 1.005-1.030 UA BLOOD DIPSTICK (test code=LYLE) NEGATIVE NEGATIVE UA PH DIPSTICK (test code=MANAN) 5.0 5.0-7.0 UA PROTEIN DIPSTICK (test code=PROU) NEGATIVE NEGATIVE UA UROBILINIOGEN DIPSTICK (test code=URO) 0.2 mg/dL 0.2-1.0 UA NITRITE DIPSTICK (test code=SHAN) NEGATIVE NEGATIVE UA LEUKOCYTE ESTERASE DIPSTICK (test code=LEUU) NEGATIVE NEGATIVE UA WBC (test code=WBCU) NONE SEEN WBC/HPF 0-3 UA RBC (test code=RBCU) 0-3 RBC/HPF 0-3 UA BACTERIA (test code=BACU) NONE SEEN /HPF NONE SEEN UA SQUAMOUS CELLS (test code=SQU) 0-5 /HPF NONE SEEN UA MUCUS (test code=MUCU) TRACE /LPF NONE SEEN COMMENTS: Clean CatchCBC W/AUTO [id number] 18:21:00* Test Item Value Reference Range Comments WHITE BLOOD CELL (test code=WBC) 3.99 x10 3/uL 4.5-11.0 RED BLOOD CELL (test code=RBC) 4.11 x10 6/uL 3.54-5.02 HEMOGLOBIN (test code=HGB) 12.4 g/dL 11.0-15.0 HEMATOCRIT (test code=HCT) 39.4 % 33.0-45.0 MEAN CELL VOLUME (test code=MCV) 95.9 fL 81.0-99.0 MEAN CELL HGB (test code=MCH) 30.2 pg 27.0-33.0 MEAN CELL HGB CONCETRATION (test code=MCHC) 31.5 g/dL 33.0-37.0 RED CELL DISTRIBUTION WIDTH CV (test code=RDW) 16.8 % 11.5-14.5 RED CELL DISTRIBUTION WIDTH SD (test code=RDW-SD) 57.1 fL 37.0-54.0 PLATELET COUNT (test code=PLT) 235 x10 3/uL 150-400 MEAN PLATELET VOLUME (test code=MPV) 9.8 fL 7.0-9.0 NEUTROPHIL % (test code=NT%) 57.8 % 56.0-77.0 IMMATURE GRANULOCYTE % (test code=IG%) 0.3 % 0.0-2.0 LYMPHOCYTE % (test code=LY%) 25.6 % 14.0-32.0 MONOCYTE % (test code=MO%) 14.0 % 4.8-9.0 EOSINOPHIL % (test code=EO%) 0.5 % 0.3-3.7 BASOPHIL % (test code=BA%) 1.8 % 0.0-2.0 NUCLEATED RBC % (test code=NRBC%) 0.0 % 0-0 NEUTROPHIL # (test code=NT#) 2.31 x10 3/uL 2.0-7.6 IMMATURE GRANULOCYTE # (test code=IG#) 0.01 x10 3/uL 0.00-0.03 LYMPHOCYTE # (test code=LY#) 1.02 x10 3/uL 1.0-3.8 MONOCYTE # (test code=MO#) 0.56 x10 3/uL 0.1-0.8 EOSINOPHIL # (test code=EO#) 0.02 x10 3/uL 0.0-0.2 BASOPHIL # (test code=BA#) 0.07 x10 3/uL 0.0-0.2 NUCLEATED RBC # (test code=NRBC#) 0.00 x10 3/uL 0.0-0.1 MANUAL DIFF REQUIRED (test code=MDIFF) NO COMPREHENSIVE METABOLIC [id number] 04:10:00* Test Item Value Reference Range Comments SODIUM (test code=NA) 139 mEq/L 134-147 POTASSIUM (test code=K) 3.6 mEq/L 3.4-5.0 CHLORIDE (test code=CL) 104 mEq/L 100-108 CARBON DIOXIDE (test code=CO2) 25 mEq/L 21-33 ANION GAP (test code=GAP) 14 0-20 GLUCOSE (test code=GLU) 74 mg/dL 70-110 BLOOD UREA NITROGEN (test code=BUN) 6 mg/dL 7-18 GLOMERULAR FILTRATION RATE (test code=GFR) 92.2 95-105 Units of measure=ml/min/1.73 m2 CREATININE (test code=CREAT) 0.7 mg/dL 0.6-1.3 TOTAL PROTEIN (test code=PROT) 10.3 g/dL 6.4-8.2 ALBUMIN (test code=ALB) 4.30 g/dL 3.4-5.0 CALCIUM (test code=CA) 8.6 mg/dL 8.0-10.5 BILIRUBIN TOTAL (test code=BILT) 0.50 mg/dL 0.0-1.0 SGOT/AST (test code=AST) 137 IUnit/L 15-37 SGPT/ALT (test code=ALT) 42 IUnit/L 15-65 ALKALINE PHOSPHATASE TOTAL (test code=ALKP) 344 IUnit/L 20-125 [id number] 04:10:00* Test Item Value Reference Range Comments LIPASE (test code=LIP) 137 IUnit/L 73-393 CPK-MB [id number] 04:10:00* Test Item Value Reference Range Comments CREATINE KINASE (CK) (test code=CK) 127 35-232 Result is in INTERNATIONAL UNITS/LITER CKMB (test code=CKMBT) < 1.0 ng/mL 0-5.0 CUT OFF:>5 ng/mL is suggested as being consistent with AMI. RELATIVE % INDEX (test code=REL%) 0.7 % 0.0-2.5 *CK-MB INTERPRETATION* NORMAL: <5 ng/ml & <2.5% INDEX ABNORMAL: >5 ng/ml & >2.5% INDEX SANTOS ZONE: >5 ng/ml & <2.5% INDEX - SUGGEST CPK ISOENZYME BY ELECTROPHORESIS *PLEASE NOTE* A LOW TOTAL CK MAY CALCULATE TO A FALSELY ELEVATED INDEX. [id number] 04:10:00* Test Item Value Reference Range Comments LEVETIRACETAM (test code=LEVTAM) None Detected ug/mL 10.0-40.0 This test was developed and its performance characteristicsdetermined by [facility]. It has not been cleared orapproved by the Food and Drug Administration.Performed At: [facility] [id number] Foy MD Ph:[phone] ACUTE HEPATITIS [id number] 12:50:00* Test Item Value Reference Range Comments AB HEPATITIS A IGM (test code=HAVMAB) NON REACTIVE INDEX NON REACT. AG HEPATITIS B SURFACE (test code=HBSAG) NON REACTIVE INDEX NonReactive AB HEPATITIS B CORE IGM (test code=HBCMAB) NON REACTIVE INDEX NON REACT. AB HEPATITIS C (test code=HCVAB) NON REACTIVE INDEX NON REACT. ACUTE HEPATITIS [id number] 12:20:00* Test Item Value Reference Range Comments AB HEPATITIS A IGM (test code=HAVMAB) INDEX NON REACT. AG HEPATITIS B SURFACE (test code=HBSAG) NON REACTIVE INDEX NonReactive AB HEPATITIS B CORE IGM (test code=HBCMAB) INDEX NON REACT. AB HEPATITIS C (test code=HCVAB) INDEX NON REACT. BASIC METABOLIC [id number] 05:21:00* Test Item Value Reference Range Comments SODIUM (test code=NA) 140 mEq/L 134-147 POTASSIUM (test code=K) 3.4 mEq/L 3.4-5.0 CHLORIDE (test code=CL) 106 mEq/L 100-108 CARBON DIOXIDE (test code=CO2) 20 mEq/L 21-33 ANION GAP (test code=GAP) 17 0-20 GLUCOSE (test code=GLU) 70 mg/dL 70-110 BLOOD UREA NITROGEN (test code=BUN) 5 mg/dL 7-18 GLOMERULAR FILTRATION RATE (test code=GFR) 110.2 95-105 Units of measure=ml/min/1.73 m2 CREATININE (test code=CREAT) 0.6 mg/dL 0.6-1.3 CALCIUM (test code=CA) 7.8 mg/dL 8.0-10.5 CBC W/AUTO [id number] 05:08:00* Test Item Value Reference Range Comments WHITE BLOOD CELL (test code=WBC) 8.28 x10 3/uL 4.5-11.0 RED BLOOD CELL (test code=RBC) 3.45 x10 6/uL 3.54-5.02 HEMOGLOBIN (test code=HGB) 10.3 g/dL 11.0-15.0 HEMATOCRIT (test code=HCT) 32.3 % 33.0-45.0 MEAN CELL VOLUME (test code=MCV) 93.6 fL 81.0-99.0 MEAN CELL HGB (test code=MCH) 29.9 pg 27.0-33.0 MEAN CELL HGB CONCETRATION (test code=MCHC) 31.9 g/dL 33.0-37.0 RED CELL DISTRIBUTION WIDTH CV (test code=RDW) 20.4 % 11.5-14.5 RED CELL DISTRIBUTION WIDTH SD (test code=RDW-SD) 71.7 fL 37.0-54.0 PLATELET COUNT (test code=PLT) 199 x10 3/uL 150-400 MEAN PLATELET VOLUME (test code=MPV) 10.3 fL 7.0-9.0 NEUTROPHIL % (test code=NT%) 48.0 % 56.0-77.0 IMMATURE GRANULOCYTE % (test code=IG%) 0.4 % 0.0-2.0 LYMPHOCYTE % (test code=LY%) 41.7 % 14.0-32.0 MONOCYTE % (test code=MO%) 8.1 % 4.8-9.0 EOSINOPHIL % (test code=EO%) 0.7 % 0.3-3.7 BASOPHIL % (test code=BA%) 1.1 % 0.0-2.0 NUCLEATED RBC % (test code=NRBC%) 0.0 % 0-0 NEUTROPHIL # (test code=NT#) 3.98 x10 3/uL 2.0-7.6 IMMATURE GRANULOCYTE # (test code=IG#) 0.03 x10 3/uL 0.00-0.03 LYMPHOCYTE # (test code=LY#) 3.45 x10 3/uL 1.0-3.8 MONOCYTE # (test code=MO#) 0.67 x10 3/uL 0.1-0.8 EOSINOPHIL # (test code=EO#) 0.06 x10 3/uL 0.0-0.2 BASOPHIL # (test code=BA#) 0.09 x10 3/uL 0.0-0.2 NUCLEATED RBC # (test code=NRBC#) 0.00 x10 3/uL 0.0-0.1 MANUAL DIFF REQUIRED (test code=MDIFF) NO - CT ABD PELVIS [id number] 00:00:00 Name: PAPO BARRETO [facility] : 1975 Age/S: 43 / F [address] [place] [address] Unit #: [id number] Loc: [place] [address] Phys: Rozina Reaves DO Acct: [id number] Dis Date: Status: ADM IN PHONE #: [phone] Exam Date: 05/18/2018 0102 FAX #: [phone] Reason: abd pain EXAMS: CPT CODE: [id number] CT ABD PELVIS W/CONT [id number] EXAM: CT Abdomen and Pelvis With Contrast EXAM DATE/TIME: 05/17/2018 9:52 PM CLINICAL HISTORY: 43 years old, female; Pain; Abdominal pain; Generalized; Additional info: Abd pain TECHNIQUE: Axial computed tomography images of the abdomen and pelvis with intravenous contrast. All CT scans at this facility use at least one of these dose optimization techniques: automated exposure control; mA and/or kV adjustment per patient size (includes targeted exams where dose is matched to clinical indication); or iterative reconstruction. Coronal and sagittal reformatted images were created and reviewed. CONTRAST: 100 ml of ISO 300 administered intravenously. COMPARISON: CT ABD PELVIS W/CONT 05/11/2018 2:03 AM FINDINGS: Lower thorax: No acute findings. ABDOMEN: Liver: As hepatic steatosis. Gallbladder and bile ducts: Status post cholecystectomy. Pancreas: Normal. No ductal dilation. Spleen: Normal. No splenomegaly. Adrenals: Normal. No mass. Kidneys and ureters: No rmal. No hydronephrosis. Stomach and bowel: Normal. No obstruction. No m ucosal thickening. Appendix: No evidence of appendicitis. PELVIS: Bladder: Unremarkable as visualized. Reproductive: Unre markable as visualized. ABDOMEN and PELVIS: Intraperitone al space: Normal. No free air. No significant fluid collection. PAGE 1 Signed Report (CONTINUED) Name: PAPO PENA [facility] : [birth year] Age/S: 43 / F [address] [place] [address] Unit #: [id number] Loc: [place] [address] Phys: Rozina Reaves DO Acct: [id number] Dis Date: Status: ADM IN PHONE #: [phone] Exam Date: 05/18/2018 010 FAX #: [phone] Reason: abd pain EXAMS: CPT CODE: [id number] CT ABD PELVIS W/CONT [id number] <Continued> Bones/joints: No acute fracture. No dislocation. Soft tissues: Unremarkable. Vasculature: Normal. No abdominal aortic aneurysm. Lymph nodes: Normal. No enlarged lymph nodes. IMPRESSION: No acute finding. at 0123 Reported and signed by: Tobias Guillermo M.D. CC: Rozina Reaves DO Technologist:RT Ky(R) CTDI: DLP: Trnscb Date/Time: 05/18/2018 (0123) [id number] PAGE 2 Signed Report COMPREHENSIVE METABOLIC [id number] 23:55:00* Test Item Value Reference Range Comments SODIUM (test code=NA) 139 mEq/L 134-147 POTASSIUM (test code=K) 3.6 mEq/L 3.4-5.0 CHLORIDE (test code=CL) 104 mEq/L 100-108 CARBON DIOXIDE (test code=CO2) 25 mEq/L 21-33 ANION GAP (test code=GAP) 14 0-20 GLUCOSE (test code=GLU) 74 mg/dL 70-110 BLOOD UREA NITROGEN (test code=BUN) 6 mg/dL 7-18 GLOMERULAR FILTRATION RATE (test code=GFR) 92.2 95-105 Units of measure=ml/min/1.73 m2 CREATININE (test code=CREAT) 0.7 mg/dL 0.6-1.3 TOTAL PROTEIN (test code=PROT) 10.3 g/dL 6.4-8.2 ALBUMIN (test code=ALB) 4.30 g/dL 3.4-5.0 CALCIUM (test code=CA) 8.6 mg/dL 8.0-10.5 BILIRUBIN TOTAL (test code=BILT) 0.50 mg/dL 0.0-1.0 SGOT/AST (test code=AST) 137 IUnit/L 15-37 SGPT/ALT (test code=ALT) 42 IUnit/L 15-65 ALKALINE PHOSPHATASE TOTAL (test code=ALKP) 344 IUnit/L 20-125 [id number] 23:55:00* Test Item Value Reference Range Comments LIPASE (test code=LIP) 137 IUnit/L 73-393 CPK-MB [id number] 23:55:00* Test Item Value Reference Range Comments CREATINE KINASE (CK) (test code=CK) 127 35-232 Result is in INTERNATIONAL UNITS/LITER CKMB (test code=CKMBT) < 1.0 ng/mL 0-5.0 CUT OFF:>5 ng/mL is suggested as being consistent with AMI. RELATIVE % INDEX (test code=REL%) 0.7 % 0.0-2.5 *CK-MB INTERPRETATION* NORMAL: <5 ng/ml & <2.5% INDEX ABNORMAL: >5 ng/ml & >2.5% INDEX SANTOS ZONE: >5 ng/ml & <2.5% INDEX - SUGGEST CPK ISOENZYME BY ELECTROPHORESIS *PLEASE NOTE* A LOW TOTAL CK MAY CALCULATE TO A FALSELY ELEVATED INDEX. [id number] 23:55:00* Test Item Value Reference Range Comments LEVETIRACETAM (test code=LEVTAM) COMPREHENSIVE METABOLIC [id number] 23:47:00* Test Item Value Reference Range Comments SODIUM (test code=NA) 139 mEq/L 134-147 POTASSIUM (test code=K) 3.6 mEq/L 3.4-5.0 CHLORIDE (test code=CL) 104 mEq/L 100-108 CARBON DIOXIDE (test code=CO2) 25 mEq/L 21-33 ANION GAP (test code=GAP) 14 0-20 GLUCOSE (test code=GLU) 74 mg/dL 70-110 BLOOD UREA NITROGEN (test code=BUN) 6 mg/dL 7-18 GLOMERULAR FILTRATION RATE (test code=GFR) 92.2 95-105 Units of measure=ml/min/1.73 m2 CREATININE (test code=CREAT) 0.7 mg/dL 0.6-1.3 TOTAL PROTEIN (test code=PROT) g/dL 6.4-8.2 ALBUMIN (test code=ALB) 4.30 g/dL 3.4-5.0 CALCIUM (test code=CA) 8.6 mg/dL 8.0-10.5 BILIRUBIN TOTAL (test code=BILT) mg/dL 0.0-1.0 SGOT/AST (test code=AST) 137 IUnit/L 15-37 SGPT/ALT (test code=ALT) 42 IUnit/L 15-65 ALKALINE PHOSPHATASE TOTAL (test code=ALKP) IUnit/L 20-125 [id number] 23:47:00* Test Item Value Reference Range Comments LIPASE (test code=LIP) 137 IUnit/L 73-393 CPK-MB [id number] 23:47:00* Test Item Value Reference Range Comments CREATINE KINASE (CK) (test code=CK) 35-232 CKMB (test code=CKMBT) ng/mL 0-5.0 RELATIVE % INDEX (test code=REL%) % 0.0-2.5 [id number] 23:47:00* Test Item Value Reference Range Comments LEVETIRACETAM (test code=LEVTAM) PROTHROMBIN [id number] 23:46:00* Test Item Value Reference Range Comments PROTHROMBIN TIME PATIENT (test code=PTP) 13.4 SECONDS 9.3-12.9 INTERNATIONAL NORMAL RATIO (test code=INR) 1.2 0.8-1.2 TARGET INR BY INDICATION Indication INR1. Prophylaxis of venous thrombosis 2.0 - 3.0 (orthopedic surgery), Prophylaxis of venous thrombosis (other than high-risk surgery), Treatment of Deep Vein Thrombosis/Pulmonary Embolism, Prevention of systemic embolism - Tissue heart valves, Acute Myocardial Infarction (to prevent systemic embolism), Valvular heart disease, Atrial Fibrillation, Bileaflet mechanical valve in aortic position.2. Mechanical prosthetic valves (high risk), 2.5 - 3.5 Presence of Lupus Anticoagulant or Antiphospholipid Antibodies, Prevention of systemic embolism - Acute Myocardial Infarction (to prevent recurrent infarct). THROMBOPLASTIN TIME [id number] 23:46:00* Test Item Value Reference Range Comments THROMBOPLASTIN TIME PARTIAL (test code=PTT) 40.6 Seconds 25.0-39.5 Therapeutic Range: 61.8-83.8 Sec Effective 05/16/2013 URINALYSIS [id number] 23:40:00* Test Item Value Reference Range Comments UA COLOR (test code=COLU) YELLOW YEL/STRAW UA APPEARANCE (test code=APPU) SL CLOUDY CLEAR UA GLUCOSE DIPSTICK (test code=DGLUU) NEGATIVE NEGATIVE UA BILIRUBIN DIPSTICK (test code=BILU) NEGATIVE NEGATIVE UA KETONE DIPSTICK (test code=KETU) NEGATIVE NEGATIVE UA SPECIFIC GRAVITY (test code=SGU) 1.013 1.005-1.030 UA BLOOD DIPSTICK (test code=LYLE) NEGATIVE NEGATIVE UA PH DIPSTICK (test code=MANAN) 5.0 5.0-7.0 UA PROTEIN DIPSTICK (test code=PROU) 1+ NEGATIVE UA UROBILINIOGEN DIPSTICK (test code=URO) 0.2 mg/dL 0.2-1.0 UA NITRITE DIPSTICK (test code=SHAN) NEGATIVE NEGATIVE UA LEUKOCYTE ESTERASE DIPSTICK (test code=LEUU) 2+ NEGATIVE UA WBC (test code=WBCU) 4-9 WBC/HPF 0-3 UA RBC (test code=RBCU) 4-10 RBC/HPF 0-3 UA BACTERIA (test code=BACU) NONE SEEN /HPF NONE SEEN UA SQUAMOUS CELLS (test code=SQU) 0-5 /HPF NONE SEEN UA MUCUS (test code=MUCU) TRACE /LPF NONE SEEN CBC W/AUTO [id number] 23:40:00* Test Item Value Reference Range Comments WHITE BLOOD CELL (test code=WBC) 7.93 x10 3/uL 4.5-11.0 RED BLOOD CELL (test code=RBC) 4.25 x10 6/uL 3.54-5.02 HEMOGLOBIN (test code=HGB) 12.6 g/dL 11.0-15.0 HEMATOCRIT (test code=HCT) 39.7 % 33.0-45.0 MEAN CELL VOLUME (test code=MCV) 93.4 fL 81.0-99.0 MEAN CELL HGB (test code=MCH) 29.6 pg 27.0-33.0 MEAN CELL HGB CONCETRATION (test code=MCHC) 31.7 g/dL 33.0-37.0 RED CELL DISTRIBUTION WIDTH CV (test code=RDW) 20.6 % 11.5-14.5 RED CELL DISTRIBUTION WIDTH SD (test code=RDW-SD) 73.3 fL 37.0-54.0 PLATELET COUNT (test code=PLT) 247 x10 3/uL 150-400 MEAN PLATELET VOLUME (test code=MPV) 9.7 fL 7.0-9.0 NEUTROPHIL % (test code=NT%) 40.6 % 56.0-77.0 IMMATURE GRANULOCYTE % (test code=IG%) 0.4 % 0.0-2.0 LYMPHOCYTE % (test code=LY%) 52.3 % 14.0-32.0 MONOCYTE % (test code=MO%) 3.9 % 4.8-9.0 EOSINOPHIL % (test code=EO%) 1.3 % 0.3-3.7 BASOPHIL % (test code=BA%) 1.5 % 0.0-2.0 NUCLEATED RBC % (test code=NRBC%) 0.0 % 0-0 NEUTROPHIL # (test code=NT#) 3.22 x10 3/uL 2.0-7.6 IMMATURE GRANULOCYTE # (test code=IG#) 0.03 x10 3/uL 0.00-0.03 LYMPHOCYTE # (test code=LY#) 4.15 x10 3/uL 1.0-3.8 MONOCYTE # (test code=MO#) 0.31 x10 3/uL 0.1-0.8 EOSINOPHIL # (test code=EO#) 0.10 x10 3/uL 0.0-0.2 BASOPHIL # (test code=BA#) 0.12 x10 3/uL 0.0-0.2 NUCLEATED RBC # (test code=NRBC#) 0.00 x10 3/uL 0.0-0.1 MANUAL DIFF REQUIRED (test code=MDIFF) NO UR HCG [id number] 23:35:00* Test Item Value Reference Range Comments UR HCG QUAL (test code=HCGQLU) NEGATIVE NEGATIVE TROPONIN-I [id number] 23:09:00* Test Item Value Reference Range Comments TROPONIN-I RAPID (test code=TROPIRAP) 0.00 ng/mL 0.00-0.08 Performed by certified automatic coil machine operator [facility] [place] Global Task Force with joint leadership from the EuropeanSociety of Cardiology (ESC), the [place] [employer] (ACCF), the [place] [employer](AHA) and the World Heart Federation (WHF) refined past criteria of myocardial infarction (AK) with a universal definition of myocardial infarction that supports the use of cTnI as a preferred biomarker for myocardial injury. The universal definition of AK, according to this taskforce, is defined as a typical rise and gradual fall ofcardiac biomarkers (preferably troponin) with at least onevalue above the 99th percentile of the upper reference limit (URL) together with evidence of myocardial ischemia with at least one of the following:* ischemic symptoms,* pathological Q waves on electrocardiogram (ECG),* ischemic ECG changes,* or imaging evidence of new loss of viable myocardium or new regional wall motion abnormality. An elevated troponin value alone is not sufficient todiagnose a myocardial infarction. Rather, the patient sclinical presentation (history, physical exam) and ECGshould be used in conjunction with troponin in thediagnostic evaluation of suspected myocardial infarction. Aserial sampling protocol is recommended to facilitate the identification of temporal changes in troponin levels characteristic of AK. - XR CHEST 1 [id number] 22:29:00 FAX: Rozina Reaves DO [place]: [address]: REG Name: [facility] : [birth year] Age/S: 43/F [address] [place] [address] Unit #: [id number] Loc: [place] [address] Phys: Rozina Reaves DO Acct: [id number] Dis Date: Status: REG ER PHONE #: [phone] Exam Date: 05/17/20182215 FAX #: [phone] Reason: abd pain EXAMS: CPT CODE: [id number] XR CHEST 1 V 49615 SINGLE VIEW RADIOGRAPH CHEST INDICATION: Dyspnea and abdominal pain. TECHNIQUE: A single view frontal radiograph of the chest was obtained. COMPARISONS: Chest x-ray 05/11/2018 FINDINGS: There is no acute osseous fracture or dislocation. There are surgical clips in the right up per abdomen. There is no subdiaphragmatic free gas. The card iomediastinal size and contour are normal. There is no pneumothora x, pleural effusion or organized pneumonia. IMPRESSION: 1. No acute cardiopulmonary process. Electron ically Signed by Gunner Argueta on 05/17/2018 at 2229 Reported and signed by: Neil Argueta D.O. CC: Rozina Reaves DO Technologist: RT Amber(R) Trnscrd D ate/Time/By: 05/17/2018 (6793) : By: [email or web address] Orig Print D/T: S: 04/20 (6942) PAGE 1 Signed Repor t URINALYSIS [id number] 21:26:00* Test Item Value Reference Range Comments UA COLOR (test code=COLU) YELLOW YEL/STRAW UA APPEARANCE (test code=APPU) SL CLOUDY CLEAR UA GLUCOSE DIPSTICK (test code=DGLUU) NEGATIVE NEGATIVE UA BILIRUBIN DIPSTICK (test code=BILU) NEGATIVE NEGATIVE UA KETONE DIPSTICK (test code=KETU) NEGATIVE NEGATIVE UA SPECIFIC GRAVITY (test code=SGU) 1.005 1.005-1.030 UA BLOOD DIPSTICK (test code=LYLE) NEGATIVE NEGATIVE UA PH DIPSTICK (test code=MANAN) 5.0 5.0-7.0 UA PROTEIN DIPSTICK (test code=PROU) NEGATIVE NEGATIVE UA UROBILINIOGEN DIPSTICK (test code=URO) 0.2 mg/dL 0.2-1.0 UA NITRITE DIPSTICK (test code=SHAN) NEGATIVE NEGATIVE UA LEUKOCYTE ESTERASE DIPSTICK (test code=LEUU) NEGATIVE NEGATIVE UA WBC (test code=WBCU) 0-3 WBC/HPF 0-3 UA RBC (test code=RBCU) 0-3 RBC/HPF 0-3 UA BACTERIA (test code=BACU) NONE SEEN /HPF NONE SEEN UA SQUAMOUS CELLS (test code=SQU) 0-5 /HPF NONE SEEN CBC W/AUTO [id number] 01:36:00* Test Item Value Reference Range Comments WHITE BLOOD CELL (test code=WBC) 6.17 x10 3/uL 4.5-11.0 RED BLOOD CELL (test code=RBC) 3.77 x10 6/uL 3.54-5.02 HEMOGLOBIN (test code=HGB) 10.9 g/dL 11.0-15.0 HEMATOCRIT (test code=HCT) 34.5 % 33.0-45.0 MEAN CELL VOLUME (test code=MCV) 91.5 fL 81.0-99.0 MEAN CELL HGB (test code=MCH) 28.9 pg 27.0-33.0 MEAN CELL HGB CONCETRATION (test code=MCHC) 31.6 g/dL 33.0-37.0 RED CELL DISTRIBUTION WIDTH CV (test code=RDW) 22.7 % 11.5-14.5 RED CELL DISTRIBUTION WIDTH SD (test code=RDW-SD) 77.5 fL 37.0-54.0 PLATELET COUNT (test code=PLT) 213 x10 3/uL 150-400 MEAN PLATELET VOLUME (test code=MPV) 9.4 fL 7.0-9.0 MANUAL DIFF REQUIRED (test code=MDIFF) YES WBC [id number] 01:36:00* Test Item Value Reference Range Comments SEGMENTED NEUTROPHILS (test code=SEG) 38.2 % 37-69 LYMPHOCYTE (test code=LYMPH) 46.4 % 23-55 REACTIVE LYMPH (test code=RELYMPH) 9.1 % MONOCYTE (test code=MON) 1.8 % 0-10 EOSINOPHIL (test code=EOS) 2.7 % 0.0-4.0 BASOPHIL (test code=BASO) 1.8 % 0.0-2.0 ANISOCYTOSIS (test code=ANISO) 1+ PLATELET ESTIMATE (test code=PLTEST) Adequate THOUSAND ADEQUATE CBC W/AUTO [id number] 01:33:00* Test Item Value Reference Range Comments WHITE BLOOD CELL (test code=WBC) 6.17 x10 3/uL 4.5-11.0 RED BLOOD CELL (test code=RBC) 3.77 x10 6/uL 3.54-5.02 HEMOGLOBIN (test code=HGB) 10.9 g/dL 11.0-15.0 HEMATOCRIT (test code=HCT) 34.5 % 33.0-45.0 MEAN CELL VOLUME (test code=MCV) 91.5 fL 81.0-99.0 MEAN CELL HGB (test code=MCH) 28.9 pg 27.0-33.0 MEAN CELL HGB CONCETRATION (test code=MCHC) 31.6 g/dL 33.0-37.0 RED CELL DISTRIBUTION WIDTH CV (test code=RDW) 22.7 % 11.5-14.5 RED CELL DISTRIBUTION WIDTH SD (test code=RDW-SD) 77.5 fL 37.0-54.0 PLATELET COUNT (test code=PLT) 213 x10 3/uL 150-400 MEAN PLATELET VOLUME (test code=MPV) 9.4 fL 7.0-9.0 MANUAL DIFF REQUIRED (test code=MDIFF) YES WBC [id number] 01:33:00* Test Item Value Reference Range Comments ANISOCYTOSIS (test code=ANISO) PLATELET ESTIMATE (test code=PLTEST) THOUSAND ADEQUATE CBC W/AUTO [id number] 01:33:00* Test Item Value Reference Range Comments WHITE BLOOD CELL (test code=WBC) 6.17 x10 3/uL 4.5-11.0 RED BLOOD CELL (test code=RBC) 3.77 x10 6/uL 3.54-5.02 HEMOGLOBIN (test code=HGB) 10.9 g/dL 11.0-15.0 HEMATOCRIT (test code=HCT) 34.5 % 33.0-45.0 MEAN CELL VOLUME (test code=MCV) 91.5 fL 81.0-99.0 MEAN CELL HGB (test code=MCH) 28.9 pg 27.0-33.0 MEAN CELL HGB CONCETRATION (test code=MCHC) 31.6 g/dL 33.0-37.0 RED CELL DISTRIBUTION WIDTH CV (test code=RDW) 22.7 % 11.5-14.5 RED CELL DISTRIBUTION WIDTH SD (test code=RDW-SD) 77.5 fL 37.0-54.0 PLATELET COUNT (test code=PLT) 213 x10 3/uL 150-400 MEAN PLATELET VOLUME (test code=MPV) 9.4 fL 7.0-9.0 MANUAL DIFF REQUIRED (test code=MDIFF) YES WBC [id number] 01:33:00* Test Item Value Reference Range Comments ANISOCYTOSIS (test code=ANISO) PLATELET ESTIMATE (test code=PLTEST) THOUSAND ADEQUATE URINALYSIS [id number] 01:22:00* Test Item Value Reference Range Comments UA COLOR (test code=COLU) YEL/STRAW UA APPEARANCE (test code=APPU) CLEAR UA GLUCOSE DIPSTICK (test code=DGLUU) NEGATIVE UA BILIRUBIN DIPSTICK (test code=BILU) NEGATIVE UA KETONE DIPSTICK (test code=KETU) NEGATIVE UA SPECIFIC GRAVITY (test code=SGU) 1.005-1.030 UA BLOOD DIPSTICK (test code=LYLE) NEGATIVE UA PH DIPSTICK (test code=MANAN) 5.0-7.0 UA PROTEIN DIPSTICK (test code=PROU) NEGATIVE UA UROBILINIOGEN DIPSTICK (test code=URO) mg/dL 0.2-1.0 UA NITRITE DIPSTICK (test code=SHAN) NEGATIVE UA LEUKOCYTE ESTERASE DIPSTICK (test code=LEUU) NEGATIVE UA WBC (test code=WBCU) 0-3 WBC/HPF 0-3 UA RBC (test code=RBCU) 0-3 RBC/HPF 0-3 UA BACTERIA (test code=BACU) NONE SEEN /HPF NONE SEEN UA SQUAMOUS CELLS (test code=SQU) 0-5 /HPF NONE SEEN UA MUCUS (test code=MUCU) TRACE /LPF NONE SEEN URINALYSIS [id number] 01:22:00* Test Item Value Reference Range Comments UA COLOR (test code=COLU) YELLOW YEL/STRAW UA APPEARANCE (test code=APPU) CLEAR CLEAR UA GLUCOSE DIPSTICK (test code=DGLUU) NEGATIVE NEGATIVE UA BILIRUBIN DIPSTICK (test code=BILU) NEGATIVE NEGATIVE UA KETONE DIPSTICK (test code=KETU) NEGATIVE NEGATIVE UA SPECIFIC GRAVITY (test code=SGU) 1.004 1.005-1.030 UA BLOOD DIPSTICK (test code=LYLE) 2+ NEGATIVE UA PH DIPSTICK (test code=MANAN) 5.0 5.0-7.0 UA PROTEIN DIPSTICK (test code=PROU) NEGATIVE NEGATIVE UA UROBILINIOGEN DIPSTICK (test code=URO) 0.2 mg/dL 0.2-1.0 UA NITRITE DIPSTICK (test code=SHAN) NEGATIVE NEGATIVE UA LEUKOCYTE ESTERASE DIPSTICK (test code=LEUU) NEGATIVE NEGATIVE UA WBC (test code=WBCU) 0-3 WBC/HPF 0-3 UA RBC (test code=RBCU) 0-3 RBC/HPF 0-3 UA BACTERIA (test code=BACU) NONE SEEN /HPF NONE SEEN UA SQUAMOUS CELLS (test code=SQU) 0-5 /HPF NONE SEEN UA MUCUS (test code=MUCU) TRACE /LPF NONE SEEN BASIC METABOLIC [id number] 01:14:00* Test Item Value Reference Range Comments SODIUM (test code=NA) 141 mEq/L 134-147 POTASSIUM (test code=K) 3.7 mEq/L 3.4-5.0 CHLORIDE (test code=CL) 109 mEq/L 100-108 CARBON DIOXIDE (test code=CO2) 22 mEq/L 21-33 ANION GAP (test code=GAP) 14 0-20 GLUCOSE (test code=GLU) 103 mg/dL 70-110 BLOOD UREA NITROGEN (test code=BUN) 5 mg/dL 7-18 GLOMERULAR FILTRATION RATE (test code=GFR) 110.2 95-105 Units of measure=ml/min/1.73 m2 CREATININE (test code=CREAT) 0.6 mg/dL 0.6-1.3 CALCIUM (test code=CA) 8.1 mg/dL 8.0-10.5 HEPATIC FUNCTION [id number] 01:14:00* Test Item Value Reference Range Comments TOTAL PROTEIN (test code=PROT) 8.7 g/dL 6.4-8.2 ALBUMIN (test code=ALB) 3.70 g/dL 3.4-5.0 BILIRUBIN TOTAL (test code=BILT) 0.50 mg/dL 0.0-1.0 BILIRUBIN DIRECT (test code=BILD) 0.30 MG/DL 0.0-0.30 BILIRUBIN INDIRECT (test code=BILIND) 0.20 MG/DL SGOT/AST (test code=AST) 111 IUnit/L 15-37 SGPT/ALT (test code=ALT) 42 IUnit/L 15-65 ALKALINE PHOSPHATASE TOTAL (test code=ALKP) 295 IUnit/L 20-125 [id number] 01:14:00* Test Item Value Reference Range Comments LIPASE (test code=LIP) 149 IUnit/L 73-393 HCG SERUM [id number] 01:14:00* Test Item Value Reference Range Comments HCG SERUM QUAL (test code=HCGQL) SERUM NEGATIVE NEGATIVE BASIC METABOLIC [id number] 01:11:00* Test Item Value Reference Range Comments SODIUM (test code=NA) 141 mEq/L 134-147 POTASSIUM (test code=K) 3.7 mEq/L 3.4-5.0 CHLORIDE (test code=CL) 109 mEq/L 100-108 CARBON DIOXIDE (test code=CO2) 22 mEq/L 21-33 ANION GAP (test code=GAP) 14 0-20 GLUCOSE (test code=GLU) 103 mg/dL 70-110 BLOOD UREA NITROGEN (test code=BUN) 5 mg/dL 7-18 GLOMERULAR FILTRATION RATE (test code=GFR) 110.2 95-105 Units of measure=ml/min/1.73 m2 CREATININE (test code=CREAT) 0.6 mg/dL 0.6-1.3 CALCIUM (test code=CA) 8.1 mg/dL 8.0-10.5 HEPATIC FUNCTION [id number] 01:11:00* Test Item Value Reference Range Comments TOTAL PROTEIN (test code=PROT) g/dL 6.4-8.2 ALBUMIN (test code=ALB) 3.70 g/dL 3.4-5.0 BILIRUBIN TOTAL (test code=BILT) mg/dL 0.0-1.0 BILIRUBIN DIRECT (test code=BILD) 0.30 MG/DL 0.0-0.30 SGOT/AST (test code=AST) 111 IUnit/L 15-37 SGPT/ALT (test code=ALT) 42 IUnit/L 15-65 ALKALINE PHOSPHATASE TOTAL (test code=ALKP) IUnit/L 20-125 [id number] 01:11:00* Test Item Value Reference Range Comments LIPASE (test code=LIP) 149 IUnit/L 73-393 HCG SERUM [id number] 01:11:00* Test Item Value Reference Range Comments HCG SERUM QUAL (test code=HCGQL) SERUM NEGATIVE NEGATIVE BASIC METABOLIC [id number] 01:09:00* Test Item Value Reference Range Comments SODIUM (test code=NA) mEq/L 134-147 POTASSIUM (test code=K) mEq/L 3.4-5.0 CHLORIDE (test code=CL) mEq/L 100-108 CARBON DIOXIDE (test code=CO2) mEq/L 21-33 ANION GAP (test code=GAP) 0-20 GLUCOSE (test code=GLU) mg/dL 70-110 BLOOD UREA NITROGEN (test code=BUN) mg/dL 7-18 GLOMERULAR FILTRATION RATE (test code=GFR) 95-105 CREATININE (test code=CREAT) mg/dL 0.6-1.3 CALCIUM (test code=CA) mg/dL 8.0-10.5 HEPATIC FUNCTION [id number] 01:09:00* Test Item Value Reference Range Comments TOTAL PROTEIN (test code=PROT) g/dL 6.4-8.2 ALBUMIN (test code=ALB) g/dL 3.4-5.0 BILIRUBIN TOTAL (test code=BILT) mg/dL 0.0-1.0 BILIRUBIN DIRECT (test code=BILD) MG/DL 0.0-0.30 SGOT/AST (test code=AST) IUnit/L 15-37 SGPT/ALT (test code=ALT) IUnit/L 15-65 ALKALINE PHOSPHATASE TOTAL (test code=ALKP) IUnit/L 20-125 [id number] 01:09:00* Test Item Value Reference Range Comments LIPASE (test code=LIP) IUnit/L 73-393 HCG SERUM [id number] 01:09:00* Test Item Value Reference Range Comments HCG SERUM QUAL (test code=HCGQL) SERUM NEGATIVE NEGATIVE - XR CHEST 2 [id number] 01:02:00 FAX: Jairo Rendon NP [phone] [place]: St: REG Name: PAPO PENA [facility] : [birth year] Age/S: 43/F [address] [place] [address] Blvd Unit #: [id number] Loc: [place] [address] Phys: Jairo Rendon NP Acct: [id number] Dis Date: Status: REG ER PHONE #: [phone] Exam Date: 05/11/2018100 FAX #: [phone] Reason: SOB EXAMS: CPT CODE: [id number] XR CHEST 2 V 43397 Chest, 2 views dated 05/11/2018. HISTORY: Shortness of breath. No prior studies are rhianna ilable for comparison. The heart is normal in size. The cardiomed iastinal shadow appears within normal limits. The lungs appear clear. Th e pulmonary vasculature is normal in caliber. No acute pleural space abnormalities are detected. IMPRESSION: 1. No radiogr aphic evidence of acute cardiopulmonary disease. SL: 131 at 0102 Reported and signed by: Vicente Davis M.D. CC: Jairo Fry NP Technologist: RT Yonatan (Yolande) Trnscrd Date/Time/By: 05/11/2018 (101) : By: Jb Grimes Print D/T: S: 05/11/2018 (5) PAGE 1 Signed Report CBC W/AUTO [id number] 00:55:00* Test Item Value Reference Range Comments WHITE BLOOD CELL (test code=WBC) 6.17 x10 3/uL 4.5-11.0 RED BLOOD CELL (test code=RBC) 3.77 x10 6/uL 3.54-5.02 HEMOGLOBIN (test code=HGB) 10.9 g/dL 11.0-15.0 HEMATOCRIT (test code=HCT) 34.5 % 33.0-45.0 MEAN CELL VOLUME (test code=MCV) 91.5 fL 81.0-99.0 MEAN CELL HGB (test code=MCH) 28.9 pg 27.0-33.0 MEAN CELL HGB CONCETRATION (test code=MCHC) 31.6 g/dL 33.0-37.0 RED CELL DISTRIBUTION WIDTH CV (test code=RDW) 22.7 % 11.5-14.5 RED CELL DISTRIBUTION WIDTH SD (test code=RDW-SD) 77.5 fL 37.0-54.0 PLATELET COUNT (test code=PLT) 213 x10 3/uL 150-400 MEAN PLATELET VOLUME (test code=MPV) 9.4 fL 7.0-9.0 LYMPHOCYTE % (test code=LY%) % 14.0-32.0 MANUAL DIFF REQUIRED (test code=MDIFF) - CT ABD PELVIS [id number] 00:00:00 Name: MARY LOUPAPO L [facility] : 1975 Age/S: 43 / F [address] [place] [address] Unit #: [id number] Loc: [place] [address] Phys: Jairo Rendon NP Acct: [id number] Dis Date: Status: REG ER PHONE #: [phone] Exam Date: 05/11/2018 0203 FAX #: [phone] Reason: LLQ abd pain, recent colonoscopy EXAMS: CPT CODE: [id number] CT ABD PELVIS W/CONT 16211 EXAM: CT Abdomen and Pelvis With Contrast EXAM DATE/TIME: 05/11/2018 12:34 AM CLINICAL HISTORY: 43 years old, female; Pain; Abdominal pain; Localized; Left lower quadrant (llq); Additional info: Llq abd pain, recent colonoscopy TECHNIQUE: Axial computed tomography images of the abdomen and pelvis with intravenous contrast. All CT scans at this facility use at least one of these dose optimization techniques: automated exposure control; mA and/or kV adjustment per patient size (includes targeted exams where dose is matched to clinical indication); or iterative reconstruction. Coronal and sagittal reformatted images were created and reviewed. CONTRAST: 100 ml of ISO 300 administered intravenously. COMPARISON: CT PELVIS W/O CONTRAST 04/23/2018 5:01 PM FINDINGS: Lower thorax: No acute findings. ABDOMEN: Liver: Normal. No mass. Gallbl adder and bile ducts: Status post cholecystectomy. Pancreas: Normal. No ductal dilation. Spleen: Normal. No splenomegaly. Adrenals: Nor mal. No mass. Kidneys and ureters: Normal. No hydronephrosis. St omach and bowel: Normal. No obstruction. No mucosal thickening. Appendix : No evidence of appendicitis. PELVIS: Bladder: Unremarka ble as visualized. Reproductive: There 2 hypoattenuation cystic mass is seen associated with the right ovary largest measuring 2.2 x 2.6 cm. The se likely represent benign or functional ovarian cysts. AB DOMEN and PELVIS: PAGE 1 Signed Report (CONTINUED) Name: PAPO BARRETO Norma [facility] MELISSA Moreno nolvia : 1975 Age/S: 43 / F [address] [place] [address] Blvd Unit #: [id number] Loc: [place] [address] Phys: Jairo Rendon NP Acct: [id number] Dis Date: Status: REG ER PHONE #: [phone] Exam Date: 05/11/2018 0203 FAX #: [phone] Reason: LLQ abd pain, recent colonoscopy EXAMS: CPT CODE: [id number] ABD PELVIS W/CONT 25945 <Continued> Intraperitoneal space: Normal. No free air. No significant fluid collection. Bones/joints: No acute fracture. No dislocation. So ft tissues: Unremarkable. Vasculature: Normal. No abdominal aortic aneur ysm. Lymph nodes: Normal. No enlarged lymph nodes. IMPR ESSION: Probable benign or functional right ovarian cysts, largest sascha uring up to 2.6 cm. at 0225 * * Reported and signed by: Kendell Saunders M.D. CC: Jairo Rendon NP Techno logist:RT Mookie(R) CTDI: DLP: Trnscb Date/Time : 05/11/2018 (224) [email or web address] Orig Print D/T: S: 05/11/19 19 (5081) CTDI: DLP: PAGE 2 Tequila d Report
--- NOTE | 2018-09-23 17:06 | Diagnostic Imaging Report ---
EXAMINATION: CHEST 2 VIEWS INDICATION: ^fall ^[id number] ^[id number] COMPARISON: None FINDINGS: PA and lateral views TUBES and LINES: None. LUNGS: Lungs are well inflated. Lungs are clear. There is no evidence of pneumonia or pulmonary edema. PLEURA: No pleural effusion or pneumothorax. HEART AND MEDIASTINUM: The cardiomediastinal silhouette is unremarkable. BONES AND SOFT TISSUES: No acute osseous lesion. Right upper quadrant cholecystectomy clips. UPPER ABDOMEN: No free air under the diaphragm. IMPRESSION: No acute thoracic abnormality. Signed by: Dr. Dionna Mendez M.D. on 09/23/2018 5:02 PM
--- NOTE | 2018-09-23 17:09 | Diagnostic Imaging Report ---
Cervical Spine, 7 views HISTORY: Pain. COMPARISON: None. FINDINGS: Limited sensitivity for detection of subtle fractures and ligamentous abnormalities. On the lateral view, the cervical spine is visualized from the skull base to T1. The alignment is normal. No acute displaced fracture involving the visualized cervical spine. Disc Spaces and Uncovertebral Joints: Unremarkable. Facets: The facet joints are unremarkable. Metallic linear densities overlying the temporal skull. IMPRESSION: No acute radiographic abnormality. Signed by: Dr. Dionna Mendez M.D. on 09/23/2018 5:06 PM
--- NOTE | 2018-09-23 17:10 | Diagnostic Imaging Report ---
LEFT SHOULDER X-RAY - 2 VIEWS HISTORY: ^pain s/p fall ^[id number] ^[id number] COMPARISON: Chest radiograph 09/23/2018 FINDINGS: Bones: No acute displaced fracture. Osseous alignment is within normal limits. Joints: The joint spaces are well-maintained. Soft tissues: The soft tissues appear unremarkable. IMPRESSION: No acute radiographic abnormality. Signed by: Dr. Dionna Mendez M.D. on 09/23/2018 5:07 PM
== END 2018-09-23 17:28 | disposition home or self-care (01) ==
LOC: ER 15:55
DX: S20.212A Contusion of left front wall of thorax, initial encounter (principal); S10.83XA Contusion of other specified part of neck, initial encounter; S46.812A Strain of other muscles, fascia and tendons at shoulder and upper arm level, left arm, initial encounter; S16.1XXA Strain of muscle, fascia and tendon at neck level, initial encounter; W18.30XA Fall on same level, unspecified, initial encounter; Y92.008 Other place in unspecified non-institutional (private) residence as the place of occurrence of the external cause
CPT/HCPCS: 71046; 72050; 99282

== ENCOUNTER 2018-10-15 06:59 | Emergency (ER) | payer SELFPAY ==
[~2018-10-15] VITALS: Ht 165.1 cm; Wt 61.2 kg
--- OUTSIDE RECORDS SUMMARY | 2018-10-15 07:02 | XMS REPORT | Clinical Summary ---
Author Author [facility] Organization [facility] [place] [facility] Address Unknown Phone Unavailable Care Team Providers Care Orthodontist Assistant Name Role Phone Asked, No Pcp PCP [...] tablet 0 ORAL by mouth every morning. 11/03/2017 ciprofloxacin HCl (CIPRO) Take 1 tablet [...] anemia due to chronic blood loss 03/31/2018 [facility] General Internal Medicine - Encounter 04/04/2018 Checo Xie MD Bavare, Arusha Amod, MD Chest pain, unspecified type (Primary Dx); Electrolyte abnormality; Seizure; Hyponatremia; Dehydration; Nonintractable episodic headache, unspecified headache type; Hypertensive urgency; Leukocytosis, unspecified type; Urinary tract infection without hematuria, site unspecified 10/24/2017 [facility] General Surgery - Encounter 10/29/2017 after 10/14/2017 Immunizations Name Dates Previously Given Next Due [...] Taken Vital Sign Reading 05/30/2018 6:18 AM CEMENT CUTTER Blood Pressure 107/86 05/30/2018 6:18 AM CEMENT CUTTER Pulse 95 05/30/2018 2:21 AM CEMENT CUTTER Temperature 36.8 C (98.3 F) 05/30/2018 6:18 AM C[facility] C[facility]TER Respiratory Rate 14 05/30/2018 6:18 AM C[facility] CUTTER Oxygen Saturation 94% - Inhaled Oxygen - Concentration 05/09/2018 9:44 PM CEMENT C[facility]TER Weight 58.1 kg (128 lb) 05/30/2018 2:21 AM CEMENT C[facility]TER Height 165.1 cm (5' 5") 05/09/2018 9:44 PM [facility] C[facility]TER Body Mass Index 21.97 Plan of Treatment Health Maintenance Due Date Last Done Comments INFLUENZA VACCINE 11/16/2018 Procedures Comments Procedure Name Priority Date/Time Associated Diagnosis ECG 12-LEAD STAT 05/30/2018 5:00 AM C[facility]TER XR CHEST 1 VW PORTABLE STAT 05/30/2018 3:[address] HEAD WO CONTRAST STAT 05/30/2018 3:12 AM C[facility] C[facility]TER ESTIMATED GFR STAT 05/30/2018 2:54 AM C[facility] C[facility]TER CREATINE KINASE, TOTAL STAT 05/30/2018 (CPK) 2:54 AM C[facility] C[facility]TER B NATRIURETIC PEPTIDE STAT 05/30/2018 2:54 AM C[facility] C[facility]TER TROPONIN STAT 05/30/2018 2:54 AM [facility]TER MAGNESIUM LEVEL STAT 05/30/2018 2:54 AM [facility] C[facility]TER PHOSPHORUS LEVEL STAT 05/30/2018 2:54 AM C[facility] C[facility]TER COMPREHENSIVE METABOLIC STAT 05/30/2018 PANEL 2:54 AM C[facility] C[facility]TER PARTIAL THROMBOPLASTIN STAT 05/30/2018 TIME (PTT) 2:54 AM C[facility] C[facility]TER PROTHROMBIN TIME WITH INR STAT 05/30/2018 2:54 AM C[facility] C[facility]TER HC COMPLETE BLD COUNT STAT 05/30/2018 W/AUTO DIFF 2:54 AM C[facility] C[facility]TER ECG ED PRELIMINARY Routine 05/30/2018 INTERPRETATION 2:[address] HEAD WO CONTRAST STAT 05/10/2018 12:[address] ABDOMEN PELVIS W STAT 05/10/2018 CONTRAST 12:57 AM [facility]TER SMEAR REVIEW STAT 05/09/2018 11:16 PM C[facility] C[facility]TER ESTIMATED GFR STAT 05/09/2018 11:16 PM CEMENT CUTTER KEPPRA (LEVETIRACETAM) Routine 05/09/2018 LEVEL 11:16 PM C[facility] C[facility]TER HCG QUALITATIVE, SERUM STAT 05/09/2018 SCREEN 11:16 PM [facility] C[facility]TER URINALYSIS SCREEN AND STAT 05/09/2018 MICROSCOPY, WITH REFLEX 11:16 PM CEMENT CUTTER TO CULTURE LIPASE LEVEL STAT 05/09/2018 11:16 PM [facility] C[facility]TER COMPREHENSIVE METABOLIC STAT 05/09/2018 PANEL 11:16 PM C[facility] C[facility]TER PROTHROMBIN TIME WITH INR STAT 05/09/2018 11:16 PM C[facility] CUTTER HC COMPLETE BLD COUNT STAT 05/09/2018 W/AUTO DIFF 11:16 PM [facility] C[facility]TER URINE CULTURE STAT 05/09/2018 11:16 PM C[facility] C[facility]TER HC COMPLETE BLD COUNT Routine 04/04/2018 W/AUTO DIFF 4:15 AM [facility] C[facility]TER ESTIMATED GFR Routine 04/04/2018 4:00 AM C[facility] C[facility]TER BASIC METABOLIC PANEL Routine 04/04/2018 4:00 AM C[facility] C[facility]TER URINE PROTEIN Routine 04/03/2018 ELECTROPHORESIS, 24 HOUR 3:30 PM [facility]TER ESTIMATED GFR Routine 04/03/2018 5:03 AM [facility] C[facility]TER ANTI MITOCHONDRIA SCREEN Routine 04/03/2018 5:03 AM C[facility] C[facility]TER ANTI SMOOTH MUSCLE AB Routine 04/03/2018 SCREEN 5:03 AM [facility] C[facility]TER ANTI-NEUTROPHILIC Routine 04/03/2018 CYTOPLASMIC ABS PANEL 5:03 AM C[facility] C[facility]TER CHICO Routine 04/03/2018 5:03 AM [facility]TER MAGNESIUM LEVEL Routine 04/03/2018 5:03 AM [facility]TER PHOSPHORUS LEVEL Routine 04/03/2018 5:03 AM [facility] C[facility]TER HEPATIC FUNCTION PANEL Routine 04/03/2018 5:03 AM C[facility] C[facility]TER BASIC METABOLIC PANEL Routine 04/03/2018 5:03 AM C[facility] C[facility]TER HC COMPLETE BLD COUNT Routine 04/03/2018 W/AUTO DIFF 5:03 AM C[facility] C[facility]TER US HEPATIC Routine 04/02/2018 2:25 PM [facility] C[facility]TER GC BY PROBETEC Routine 04/02/2018 1:31 PM [facility] C[facility]TER HEPATITIS ACUTE PANEL Routine 04/02/2018 11:05 AM C[facility] C[facility]TER HC COMPLETE BLD COUNT Routine 04/02/2018 W/AUTO DIFF 6:41 AM [facility]TER ESTIMATED GFR Routine 04/02/2018 4:00 AM C[facility] C[facility]TER BASIC METABOLIC PANEL Routine 04/02/2018 4:00 AM [facility]TER HEMOGLOBIN & HEMATOCRIT Routine 04/01/2018 6:15 PM C[facility] C[facility]TER MRI BRAIN W WO CONTRAST STAT 04/01/2018 3:56 PM C[facility] C[facility]TER CBC HEMOGRAM Routine 04/01/2018 11:10 AM C[facility] C[facility]TER HEMOGLOBIN A1C STAT 04/01/2018 11:10 AM [facility] C[facility]TER SERUM ELECTROPHORESIS Routine 04/01/2018 11:10 AM [facility]TER PARTIAL THROMBOPLASTIN Routine 04/01/2018 TIME (PTT) 11:10 AM C[facility] C[facility]TER PROTHROMBIN TIME WITH INR Routine 04/01/2018 11:10 AM [facility]TER BLOOD CULTURE, AEROBIC & Routine 04/01/2018 ANAEROBIC 11:10 AM [facility]TER BLOOD CULTURE, AEROBIC & Routine 04/01/2018 ANAEROBIC 10:10 AM [facility]TER ECG 12-LEAD STAT 04/01/2018 9:54 AM C[facility] C[facility]TER EEG EXTENDED 41 - 60 MINS Routine 04/01/2018 9:00 AM C[facility] C[facility]TER LACTIC ACID LEVEL STAT 04/01/2018 7:30 AM CEMENT C[facility]TER GGT STAT 04/01/2018 7:30 AM [facility]TER POTASSIUM, URINE, RANDOM Routine 04/01/2018 7:30 AM C[facility] C[facility]TER TROPONIN STAT 04/01/2018 7:30 AM [facility]TER LIPID PANEL STAT 04/01/2018 7:30 AM [facility]TER VITAMIN B12 LEVEL STAT 04/01/2018 7:30 AM C[facility] C[facility]TER FOLATE LEVEL STAT 04/01/2018 7:30 AM [facility]TER HEPATITIS BE AB Routine 04/01/2018 7:30 AM [facility]TER HEPATITIS BE AG Routine 04/01/2018 7:30 AM [facility]TER HEPATITIS B SURFACE Routine 04/01/2018 ANTIBODY 7:30 AM C[facility] C[facility]TER HIV AG/AB COMBINATION Routine 04/01/2018 7:30 AM [facility]TER CHLORIDE LEVEL, URINE, Routine 04/01/2018 RANDOM 7:30 AM [facility]TER SODIUM LEVEL, URINE, Routine 04/01/2018 RANDOM 7:30 AM [facility]TER URINALYSIS SCREEN AND Routine 04/01/2018 MICROSCOPY, WITH REFLEX 7:30 AM C[facility]TER TO CULTURE URINE DRUGS OF ABUSE Routine 04/01/2018 SCREEN 7:30 AM [facility]TER URINE CULTURE Routine 04/01/2018 7:30 AM [facility]TER PREALBUMIN LEVEL Routine 04/01/2018 3:45 AM C[facility] C[facility]TER GGT Routine 04/01/2018 3:20 AM [facility]TER LACTIC ACID LEVEL Routine 04/01/2018 3:20 AM [facility] SMEAR REVIEW Routine 04/01/2018 3:20 AM [facility]TER ESTIMATED GFR Routine 04/01/2018 3:20 AM C[facility]TER HC COMPLETE BLD COUNT Routine 04/01/2018 W/AUTO DIFF 3:20 AM [facility]TER PHOSPHORUS LEVEL Routine 04/01/2018 3:20 AM [facility]TER MAGNESIUM LEVEL Routine 04/01/2018 3:20 AM [facility]TER COMPREHENSIVE METABOLIC Routine 04/01/2018 PANEL 3:20 AM [facility]TER LACTIC ACID LEVEL, SEPSIS Timed 04/01/2018 - NOW AND REPEAT 2X EVERY 1:10 AM [facility]TER [address] ANGIOGRAM ABDOMEN STAT 04/01/2018 PELVIS W AND OR WO 1:00 AM C[facility] C[facility]TER CONTRAST HEPATITIS C ANTIBODY Routine 04/01/2018 12:53 AM C[facility] C[facility]TER LACTIC ACID LEVEL Routine 03/31/2018 9:51 PM C[facility] C[facility]TER FOLATE LEVEL Routine 03/31/2018 9:51 PM [facility] C[facility]TER THYROID STIMULATING Routine 03/31/2018 HORMONE 9:51 PM C[facility] C[facility]TER VITAMIN B12 LEVEL Routine 03/31/2018 9:51 PM [facility] C[facility]TER TOTAL IRON BINDING Routine 03/31/2018 CAPACITY 9:51 PM C[facility] C[facility]TER LDH Routine 03/31/2018 9:51 PM [facility]TER HAPTOGLOBIN Routine 03/31/2018 9:51 PM [facility]TER FERRITIN LEVEL Routine 03/31/2018 9:51 PM [facility] C[facility]TER RETICULOCYTE COUNT Routine 03/31/2018 9:51 PM [facility]TER PERIPHERAL SMEAR Routine 03/31/2018 9:[address] HEAD WO CONTRAST STAT 03/31/2018 9:25 PM C[facility] C[facility]TER PREPARE RBC Timed 03/31/2018 8:54 PM C[facility] C[facility]TER TYPE AND SCREEN Timed 03/31/2018 8:54 PM [facility]TER HEMOGLOBIN & HEMATOCRIT STAT 03/31/2018 8:49 PM [facility]TER SMEAR REVIEW STAT 03/31/2018 7:36 PM C[facility] C[facility]TER ESTIMATED GFR STAT 03/31/2018 7:36 PM C[facility] C[facility]TER CREATINE KINASE, TOTAL STAT 03/31/2018 (CPK) 7:36 PM C[facility] C[facility]TER LACTIC ACID LEVEL, SEPSIS STAT 03/31/2018 - NOW AND REPEAT 2X EVERY 7:36 PM C[facility] C[facility]TER 3 HOURS HCG QUALITATIVE, SERUM STAT 03/31/2018 SCREEN 7:36 PM C[facility] C[facility]TER COMPREHENSIVE METABOLIC STAT 03/31/2018 PANEL 7:36 PM C[facility] C[facility]TER HC COMPLETE BLD COUNT STAT 03/31/2018 W/AUTO DIFF 7:36 PM CEMENT C[facility]TER NM CRITICAL CARE, E/M Routine 03/31/2018 30-74 MINUTES 7:17 PM C[facility] C[facility]TER ZZESTIMATED GFR Routine 10/29/2017 4:29 AM CDT [...] MMODE SPECTRAL 5:00 PM CDT COLOR DOPPLER (74090) TROPONIN Timed 10/25/2017 2:34 PM CDT MRI [...] PRELIMINARY Routine 10/24/2017 INTERPRETATION 9:06 PM CDT NM CRITICAL CARE, E/M Routine 10/24/2017 30-74 MINUTES 9:06 PM CDT ECG 12-LEAD STAT 10/24/2017 8:53 PM CDT after 10/14/2017 Results * ECG 12 lead (05/30/2018 5:00 AM CEMENT CUTTER) Only the most recent of 3 results within the time period is included. Ventricular 92 [facility] rate Atrial rate 92 [facility] NM interval 152 [facility] QRSD interval 84 [facility] QT interval 398 [facility] QTC interval 492 [facility] P axis 1 48 [facility] QRS axis 1 12 [facility] T wave axis 41 [facility] EKG impression Normal sinus rhythm-Prolonged [facility] QT-Abnormal ECG-In automated comparison with ECG of 01-APR-2018 09:54,-No significant change was found- Specimen Narrative Performed At Performing Organization Address City/State/Zipcode Phone Number [facility] MUSE [address] [place] [address] * XR Chest 1 Vw Portable (05/30/2018 3:17 AM CEMENT CUTTER) Specimen Narrative Performed At Examination:XR CHEST 1 VW PORTABLE RAD[facility] Clinical History:seizures Comparison: None. Technique: Single frontal view of the chest is obtained. Findings: The lungs are free of infiltrate. The heart size is normal. No pleural effusion is seen. Impression: No active cardiopulmonary disease identified. [facility]-[id number] Procedure Note Interface, Radiology Results Incoming - 05/30/2018 3:22 AM C[facility] CUTTER Examination: XR CHEST 1 VW PORTABLE Clinical History: seizures Comparison: None. Technique: Single frontal view of the chest is obtained. Findings: The lungs are free of infiltrate. The heart size is normal. No pleural effusion is seen. Impression: No active cardiopulmonary disease identified. [id number] Performing Organization Address City[facility]State[facility] Phone Number [facility] [address] [place] [address] * CT Head Wo Contrast (05/30/2018 3:12 AM CEMENT CUTTER) Only the most recent of 4 results [...] no acute or focal intracranial abnormality identified. [facility]-[id number] Procedure Note Interface, Radiology Results Incoming - 05/30/2018 3:21 AM CEMENT CUTTER Examination: CT HEAD WO CONTRAST Clinical History: [...] no acute or focal intracranial abnormality identified. [id number] Performing Organization Address City/[facility]/Zipcode Phone Number [facility] [address] [place] [address] * Estimated GFR (05/30/2018 2:54 AM CEMENT CUTTER) Only the most recent of 7 results within the time period is included. Pathologist [facility] [place] Estimated GFR >=90 mL/min/1.73 m2 [facility] Comment: [facility] rpretation G1 >=90 Normal or high G2 60-89Mildly decreased [id number] Mildly to moderately decreased [id number] Moderately to severely decreased G4 15-29Severely decreased G5 <15Kidney failure The eGFR was calculated using the Chronic Kidney Disease Epidemiology Collaboration (CKD-EPI) equation. Interpretation is based on recommendations of the National Kidney Foundation-Kidney Disease Outcomes Quality Initiative (NKF-KDOQI) published in 2014. Specimen Plasma specimen Performing Organization Address [facility] [place] [address] [place] [address] PATHOLOGY AND GENOMIC MEDICINE [facility] [address] [place] [id number] [facility] * Troponin (05/30/2018 2:54 AM CEMENT CUTTER) Only the most recent of 5 results within the time period is included. Pathologist [facility] [place] Troponin <0.300 0.000 - 0.300 ng/mL [facility] Comment: [facility] 0.30 - 1.49 [facility] ng/mlMay indicate increased risk of acute coronary syndrome. >=1.5 ng/ml Consistent with acute myocardial infarction. The diagnostic value of a single normal or non-diagnostic result is questionable.Serial samples at 2-6 hour intervals are required to rule out acute myocardial injury. Specimen Plasma specimen Performing Organization Address [facility] Phone Number [address] [place] [address] * Partial thromboplastin time, activated (05/30/2018 2:54 AM CEMENT CUTTER) Only the most recent of 2 results within the time period is included. Pathologist [facility] [place] PTT 37.3 (H) 23.0 - 36.0 sec [facility] Comment: [facility] PTT therapeutic range for [facility] unfractionated heparin is 61.0-112.0 seconds which corresponds to Anti-Xa 0.3-0.7 U/ml. Specimen Blood Performing Organization Address [facility] Phone Number [address] [place] [address] AND [address] * Prothrombin time with INR (05/30/2018 2:54 AM CEMENT CUTTER) Only the most recent of 3 results within the time period is included. Pathologist [facility] [place] Prothrombin 14.1 11.5 - 14.[address] [facility] INR 1.1 [facility] Comment: [facility] The International Normalized [facility] Ratio (INR) is a therapeutic monitoring tool for patients who are stable on oral anticoagulant therapy. An INR of 2.0-3.0 is suggested for deep vein thrombosis/pulmonary embolism. Specimen Blood Performing Organization Address [facility] Phone Number [address] [place] [address] PATH[address] * CBC with platelet and differential (05/30/2018 2:54 AM CEMENT CUTTER) Only the most recent of 11 results within the time period is included. Pathologist [facility] [place] WBC 4.16 (L) 4.50 - 11.00 k/uL [facility] RBC 3.72 (L) 4.20 - 5.50 m/uL [facility] HGB 11.1 (L) 12.0 - 16.0 g/dL [facility] HCT 34.5 (L) 37.0 - 47.0 % [facility] MCV 92.7 82.0 - 100.0 fL [facility] MCH 29.8 27.0 - 34.0 pg [facility] MCHC 32.2 31.0 - 37.0 g/dL [facility] RDW - SD 54.4 37.0 - 55.0 fL [facility] MPV 9.2 8.8 - 13.2 fL [facility] Platelet count 221 150 - 400 k/uL [facility] Nucleated RBC 0.00 /100 WBC [facility] Neutrophils 27.9 (L) 39.0 - 69.0 % [facility] Lymphocytes 51.2 (H) 25.0 - 45.0 % [facility] Monocytes 17.1 (H) 0.0 - 10.0 % [facility] Eosinophils 1.9 0.0 - 5.0 % [facility] Basophils 1.9 (H) 0.0 - 1.0 % [facility] Specimen Blood Performing Organization Address [facility] Phone Number [address] [place] [address] PATHOLOGY AND [facility] MEDICINE [address] * Phosphorus level (05/30/2018 2:54 AM CEMENT CUTTER) Only the most recent of 5 results within the time period is included. Phosphorus 4.1 2.4 - 4.5 mg/dL [facility] Specimen Plasma specimen Performing Organization Address [facility] Phone Number [address] [place] [address] PATHOLOGY AND GENOMIC MEDICINE [address] * B natriuretic peptide (05/30/2018 2:54 AM CEMENT CUTTER) Only the most recent of 2 results within the time period is included. BNP 17 0 - 100 pg/mL [facility] Specimen Blood Performing Organization Address City/[facility]/Zipcode Phone Number [address] [place] [address] PATHOLOGY AND GENOMIC MEDICINE [address] * Magnesium level (05/30/2018 2:54 AM CEMENT CUTTER) Only the most recent of 7 results within the time period is included. Magnesium 1.5 (L) 1.6 - 2.6 mg/dL [facility] Specimen Plasma specimen Performing Organization Address City/[facility] Phone Number [address] [place] [address] PATHOLOGY AND GENOMIC MEDICINE [address] * Creatine kinase, total (CPK) (05/30/2018 2:54 AM CEMENT CUTTER) Only the most recent of 7 results within the time period is included. Pathologist [facility] [place] Creatine kinase 65 26 - 192 U/L [facility] Specimen Plasma specimen Performing Organization Address City/[facility] Phone Number [address] [place] [address] PATHOLOGY AND GENOMIC MEDICINE [address] * Comprehensive metabolic panel (05/30/2018 2:54 AM CEMENT CUTTER) Only the most recent of 9 results within the time period is included. Sodium 139 135 - 148 mEq/L [facility] Potassium 4.1 3.5 - 5.0 mEq/L [facility] Chloride 105 98 - 112 mEq/L [facility] CO2 21 (L) 24 - 31 mEq/L [facility] Anion gap 13@ANIO 7 - 15 mEq/L [facility] BUN 9 6 - 20 mg/dL [facility] Creatinine 0.50 0.50 - 0.90 mg/dL [facility] Glucose 100 (H) 65 - 99 mg/dL [facility] Calcium 9.4 8.3 - 10.2 mg/dL [facility] Protein 8.8 (H) 6.3 - 8.3 g/dL [facility] Comment: [facility] 4.6-7.0 g/dL 1 week 4.4-7.6 g/dL 7 months-1year 5.1-7.3 g/dL 1-2 years5.6-7 .5 g/dL >3 years6.0-8 .0 g/dL 18-150 6.3-8.3 g/dL Albumin 4.5 3.5 - 5.0 g/dL [facility] A/G ratio 1.0 0.7 - 3.8 [facility] Alkaline 373 (H) 35 - 104 U/L [facility] phosphatase [facility] AST 124 (H) 10 - 35 U/L [facility] ALT 39 5 - 50 U/L [facility] Total bilirubin 0.3 0.0 - 1.2 mg/dL [facility] Specimen Plasma specimen Performing Organization Address City/State/Zipcode [place] Number [place] [address] [address] [place] [phone] PATHOLOGY AND GENOMIC MEDICINE [facility] [address] [place] [address] [facility] * ECG ED Preliminary Interpretation - Not an Order (05/30/2018 2:20 AM CEMENT CUTTER) Only the most recent of 2 results within the time period is included. Narrative Performed At Checo Xie MD 05/30/20187:18 AM ECG ED Preliminary Interpretation - Not an Order Performed by: Chceo Xie MD Authorized by: Checo Xie MD Rate: ECG rate:92 ECG rate assessment: normal Rhythm: Rhythm: sinus rhythm QRS: QRS axis:Normal QRS intervals:Normal ST segments: ST segments:Normal T waves: T waves: normal Other findings: Other findings: prolonged qTc interval * CT Abdomen Pelvis W Contrast (05/10/2018 12:57 AM CEMENT CUTTER) Specimen Narrative Performed At EXAMINATION:CT ABDOMEN PELVIS [...] at 05/10/2018 1:08 AM who verbalized understanding. [facility]-[id number] Procedure Note [facility], Radiology Results Incoming - 05/10/2018 1:15 AM CEMENT CUTTER EXAMINATION: CT ABDOMEN PELVIS W CONTRAST CLINICAL [...] at 05/10/2018 1:08 AM who verbalized understanding. [id number] Performing Organization Address City/State/Zipcode Phone Number [facility] [address] [place] [address] * Urinalysis screen and microscopy, with reflex to culture (05/09/2018 11:16 PM CEMENT CUTTER) Only the most recent of 3 results within the time period is included. Specimen site Clean catch [facility] Color, UA Straw [facility] Appearance, UA Clear [facility] Specific 1.003 1.001 - 1.035 [facility] [facility] gravity, UA [facility] pH, UA 5.0 5.0 - 8.5 [facility] Protein, UA Negative Negative [facility] Glucose, UA Negative Negative [facility] Ketones, UA Negative Negative [facility] Bilirubin, UA Negative Negative [facility] Blood, UA Negative Negative [facility] Nitrite, UA Negative Negative [facility] Urobilinogen, Negative <2.0 [facility] Leukocyte Negative Negative [facility] esterase, UA [facility] Epithelial Few /HPF [facility] cells, UA [facility] WBC, UA 0-5 0 - 4 /HPF [facility] RBC, UA 0-5 0 - 5 /HPF [facility] Bacteria, UA None seen None seen [facility] Yeast, UA None seen [facility] Yeast with None seen [facility] Specimen Urine Performing Organization Address [facility] Phone Number [address] [place] [address] PATHOLOGY AND GENOMIC MEDICINE [address] * Smear review (05/09/2018 11:16 PM CEMENT CUTTER) Only the most recent of 3 results within the time period is included. Platelet slide Dane adequate [facility] Anisocytosis Moderate [facility] Specimen Performing Organization Address [facility] Phone Number [address] [place] [address] PATHOLOGY AND GENOMIC MEDICINE [address] * Keppra (Levetiracetam) level (05/09/2018 11:16 PM CEMENT CUTTER) Levetiracetam 14 12 - 46 ug/mL [facility] Comment: INTERPRETIVE INFORMATION: Keppra (Levetiracetam) Therapeutic Range:12-46 ug/mL Toxic: Not well Established Pharmacokinetics of levetiracetam are affected by renal function. Adverse effects may include somnolence, weakness, headache and vomiting. This levetiracetam (Keppra) immunoassay uses the [employer] reagents, which has known cross-reactivity with the drug brivaracetam (Briviact) and may report inaccurate results. Patients transitioning from levetiracetam to brivaracetam or those who are using both medications should not monitor drug concentrations with the [employer] assay. These patients should be monitored using a validated chromatographic methodology that distinguishes between drugs to determine drug concentrations. Performed by [facility], [address] [place] [address] [email or web address], Clayton Chambers MD - Lab. Director Specimen Serum Performing Organization Address [facility] Phone Number [facility] [address] [place] [address] [facility] [address] [place] [id number] * Urine culture (05/09/2018 11:16 PM CEMENT CUTTER) Only the most recent of 3 results within the time period is included. [facility] Urine culture SEE COMMENTComment: [facility] Bacteriuria screen negative. [facility] Specimen Urine Performing Organization Address [facility] Phone Number [address] [place] [address] PATHOLOGY AND [facility] MEDICINE [address] * hCG qualitative, serum screen (05/09/2018 11:16 PM CEMENT CUTTER) Only the most recent of 2 results within the time period is included. [facility] hCG Negative [facility] qualitative, Comment: [facility] serum lot [id number] [facility] exp, 8-20 control valid Specimen Blood Performing Organization Address [facility] [facility] Phone Number [address] [place] [address] PATHOLOGY AND [facility] [address] * Lipase level (05/09/2018 11:16 PM CEMENT CUTTER) [facility] Lipase 31 13 - 60 U/L [facility] Specimen Plasma specimen Performing Organization Address [facility] Phone Number [address] [place] [address] PATHOLOGY AND [facility] [address] * Basic metabolic panel (04/04/2018 4:00 AM CEMENT CUTTER) Only the most recent of 3 results within the time period is included. Sodium 137 135 - 148 mEq/L [facility] Potassium 4.1 3.5 - 5.0 mEq/L [facility] Chloride 101 98 - 112 mEq/L [facility] CO2 20 (L) 24 - 31 mEq/L [facility] Anion gap 16@ANIO (H) 7 - 15 mEq/L [facility] BUN 11 6 - 20 mg/dL [facility] Creatinine 0.60 0.50 - 0.90 mg/dL [facility] Glucose 87 65 - 99 mg/dL [facility] Calcium 9.7 8.3 - 10.2 mg/dL [facility] Specimen Plasma specimen Performing Organization Address [facility] Phone Number [facility] [place] [address] PATHOLOGY AND [facility] [address] * Urine protein electrophoresis, 24 hour (04/03/2018 3:30 PM CEMENT CUTTER) Collection 04/02/2018 [facility] start date, [place] urine [facility] Collection 1530 [place] start time, [facility] Collection stop 04/03/2018 [facility], urine [facility] Collection stop 1530 [place] time, urine [facility] Hours of 24 [facility] Total volume, 4,950 mL [facility] Urine protein <4 mg/dL [facility] Urine protein SEE COMMENTComment: Unable to 0 - 150 mg/24hrs [facility] 24 hr excretion calculate excretion due to low [place] analyte concentration. HOSPITAL UPE albumin 45.5 % [facility] UPE globulin 54.5 % [facility] UPE extended See Comment [facility] interpretation Comment: [place] An essentially normal 24 hour HOSPITAL urine protein study without clinical proteinuria. Total volume is in the polyuric range. UPE See Comment [facility] interpretation Comment: SAURAV Bowers, PhD; Ayanna Boucher MD; Jam Orellana, PhD; Yazan Park MD, PhD Specimen Urine Performing Organization Address City/[facility] Phone Number [facility] DEPARTMENT OF [address] [place] [address] PATHOLOGY AND [facility] [address] * Anti smooth muscle Ab screen (04/03/2018 5:03 AM CEMENT CUTTER) Pathologist [facility] [place] Anti smooth Not Detected Not-Detected [facility] muscle Ab [facility]OSPITAL Specimen Blood Performing Organization Address City/[facility]/Zipcode Phone Number [facility] DEPARTMENT OF [address] [place] [address] PATHOLOGY AND GENOMIC MEDICINE [address] * Anti mitochondria screen (04/03/2018 5:03 AM CEMENT CUTTER) Pathologist [facility] [place] Anti Not Detected Not-Detected [facility] mitochondria [facility]OSPITAL Specimen Blood Performing Organization Address City/State[facility] Phone Number [facility] [place] [address] PATHOLOGY AND GENOMIC MEDICINE [address] * Anti-neutrophilic cytoplasmic Abs panel (04/03/2018 5:03 AM CEMENT CUTTER) [facility] ANCA screen Negative Negative [facility] Specimen Blood Performing Organization Address City[facility] Phone Number [facility] [place] [address] PATHOLOGY AND [facility] [address] * CHICO (04/03/2018 5:03 AM CEMENT CUTTER) [facility] CHICO screen Negative Negative [facility] Specimen Blood Performing Organization Address City/[facility] Phone Number [facility] DEPARTMENT OF [address] [place] [address] PATHOLOGY AND [facility] [address] * Hepatic function panel (04/03/2018 5:03 AM CEMENT CUTTER) [facility] Albumin 3.3 (L) 3.5 - 5.0 g/dL [facility] Total bilirubin 0.5 0.0 - 1.2 mg/dL [facility] Bilirubin <0.2 0.0 - 0.3 mg/dL [facility] direct [facility] Alkaline 261 (H) 35 - 104 U/L [facility] phosphatase [facility] Protein 7.7 6.3 - 8.3 g/dL [facility] Comment: [facility] 4.6-7.0 g/dL 1 week 4.4-7.6 g/dL 7 months-1year 5.1-7.3 g/dL 1-2 years5.6-7 .5 g/dL >3 years6.0-8 .0 g/dL 18-150 6.3-8.3 g/dL ALT 24 5 - 50 U/L [facility] AST 50 (H) 10 - 35 U/L [facility] Specimen Plasma specimen Performing Organization Address City/State/Zipcode Phone Number [facility] DEPARTMENT OF [address] [place] [address] PATHOLOGY AND GENOMIC MEDICINE [facility] [place] [address] [place] [address] HOSPITAL * US Hepatic (04/02/2018 2:25 PM CEMENT CUTTER) Specimen Narrative Performed At [facility]AMIN[facility] CLINICAL HISTORY:elevated LFTs COMPARISON:September 24, 2017 ultrasound [...] free fluid noted in the upper abdomen. [facility]-[id number] Procedure Note [facility], Radiology Results Incoming - 04/02/2018 3:22 PM CEMENT CUTTER EXAMINATION: US HEPATIC CLINICAL HISTORY: elevated LFTs [...] free fluid noted in the upper abdomen. [facility]-[id number] Performing Organization Address City/[facility]/Zipcode Phone Number [facility] [address] [place] [address] * GC By ProbeTe (04/02/2018 1:31 PM CEMENT CUTTER) She [address] Negative for Neisseria JAMIL gonorrhoeae. [place] Comment: HOSPITAL Specimen Information Specimen Source: Urine Specimen Site: Random void Specimen Urine - Random void Performing Organization Address City/[facility]/Zipcode Phone Number [facility] DEPARTMENT OF [address] [place] [address] PATHOLOGY AND GENOMIC MEDICINE [facility] [place] [address] * Hepatitis acute panel (04/02/2018 11:05 AM CEMENT CUTTER) [facility] Hepatitis A IgM Non-reactive Non-reactive [facility] Hepatitis B Non-reactive Non-reactive [facility] core IgM [facility] Hepatitis B Non-reactive Non-reactive [facility] surface Ag [facility] Hepatitis C Ab Non-reactive Non-reactive [facility] Specimen Serum Performing Organization Address City/[facility] Phone Number [facility] [place] [address] PATHOLOGY AND GENOMIC MEDICINE [address] * Hemoglobin & hematocrit (04/01/2018 6:15 PM CEMENT CUTTER) Only the most recent of 2 results within the time period is included. [facility] HGB 8.0 (L) 12.0 - 16.0 g/dL [facility] HCT 26.5 (L) 37.0 - 47.0 % [facility] Specimen Blood Performing Organization Address City/[facility] Phone Number [facility] [place] [address] PATHOLOGY AND GENOMIC MEDICINE [address] * MRI Brain W Wo Contrast (04/01/2018 3:56 PM CEMENT CUTTER) Specimen Narrative Performed At [facility] EXAMINATION: MRI BRAIN W WO CONTRAST CLINICAL HISTORY: Concern for SWIFT [employer]ER inflammation infection neoplasmseizure COMPARISON:MRI brain 10/25/2017. TECHNIQUE: [...] when compared with prior MRI from 10/25/2017. [facility]-[id number] Procedure Note [facility] Interface, Radiology Results Incoming - 04/01/2018 4:04 PM CEMENT CUTTER EXAMINATION: MRI BRAIN W WO CONTRAST CLINICAL HISTORY: Concern for SWIFT T[employer]ER inflammation infection neoplasm seizure COMPARISON: MRI brain [...] when compared with prior MRI from 10/25/2017. [facility]-[id number] Performing Organization Address [facility] Phone Number [facility] [address] [place] [address] * Blood culture, aerobic & anaerobic (04/01/2018 11:10 AM CEMENT CUTTER) Only the most recent of 2 results within the time period is included. Pathologist [facility] [place] Blood culture No growth after 5 days of [facility] isolate incubation. [place] Comment: HOSPITAL Specimen Information Specimen Source: Blood Specimen Site: Arm, left Specimen Blood - Arm, left Performing Organization Address City/[facility] Phone Number [facility] DEPARTMENT OF [address] [place] [address] PATHOLOGY AND GENOMIC MEDICINE [facility] [place] [address] [place], [place] [id number] HOSPITAL * CBC hemogram (04/01/2018 11:10 AM CEMENT CUTTER) Pathologist [facility] [place] WBC 4.49 (L) 4.50 - 11.00 k/uL [facility] RBC 3.23 (L) 4.20 - 5.50 m/uL [facility] HGB 7.9 (L) 12.0 - 16.0 g/dL [facility] HCT 26.3 (L) 37.0 - 47.0 % [facility] MCV 81.4 (L) 82.0 - 100.0 fL [facility] MCH 24.5 (L) 27.0 - 34.0 pg [facility] MCHC 30.0 (L) 31.0 - 37.0 g/dL [facility] RDW - SD 55.9 (H) 37.0 - 55.0 fL [facility] MPV 10.9 8.8 - 13.2 fL [facility] Platelet count 270 150 - 400 k/uL [facility] Nucleated RBC 0.00 /100 WBC [facility] Specimen Blood Performing Organization Address City/State/Zipcode Phone Number [facility] DEPARTMENT OF [address] [place] [address] PATHOLOGY AND GENOMIC MEDICINE [address] * Serum electrophoresis (04/01/2018 11:10 AM CEMENT CUTTER) [facility] Protein 7.1 6.3 - 8.3 g/dL [facility] Comment: [facility] 4.6-7.0 g/dL 1 week 4.4-7.6 g/dL 7 months-1year 5.1-7.3 g/dL 1-2 years5.6-7 .5 g/dL >3 years6.0-8 .0 g/dL 18-150 6.3-8.3 g/dL [facility] albumin 4.17 4.00 - 5.30 g/dL [facility] SPE alpha 1 0.17 0.10 - 0.25 g/dL [facility] SPE alpha 2 0.58 0.58 - 0.84 g/dL [facility] SPE beta 1.09 0.50 - 1.10 g/dL [facility] SPE gamma 1.09 0.60 - 1.30 g/dL [facility] SPE extended See CommentComment: An [facility] interpretation essentially normal serum [facility] protein study. HOSPITAL SPE See Comment [facility] interpretation Comment: [place]EDEL[place]INE Bowers, PhD; [place] YENY Boucher MD; Jam Orellana, PhD; Yazan Park MD, PhD Specimen Serum Performing Organization Address City/[facility]/Zipcode Phone Number [facility] [address] * Hemoglobin A1c (04/01/2018 11:10 AM CEMENT CUTTER) [facility] Hemoglobin A1C 5.2 4.0 - 5.6 % [facility] Comment: [place] HbA1c cutoffs for diagnosing HOSPITAL diabetes: 4.0% - 5.6%=normal 5.7% - 6.4%=increased risk for diabetes (prediabetes) >=6.5%=diabetes Goals for glycemic control (ADA 2016) < 7.0%Target for non adults with diabetes. More or less stringent targets may be appropriate for individual patients. <7.5% Target for Children and adolescents with type 1 diabetes. Specimen Blood Performing Organization Address [facility] Phone Number [facility] [address] * EEG (routine) (04/01/2018 9:00 AM CEMENT CUTTER) Narrative Performed At EEG EXTENDED 41-60 MINS [...] * HIV Ag/Ab combination (04/01/2018 7:30 AM CEMENT CUTTER) [facility] HIV Ag/Ab Non-reactive Non-reactive [facility] Specimen Blood Performing Organization Address [facility] Phone Number [facility] [address] * Hepatitis Be Ab (04/01/2018 7:30 AM CEMENT CUTTER) Hepatitis Be Ab Negative Negative [facility] Comment: Performed by [facility], [address] [place] [address] [email or web address], Clayton Chambers MD - Lab. Director Specimen Serum Performing Organization Address City/[facility]/Zipcode Phone Number [facility] [address] [place] [address] [facility] [address] [place] [address] * Hepatitis Be Ag (04/01/2018 7:30 AM CEMENT CUTTER) Hepatitis Be Ag Negative Negative [facility] Comment: Performed by [facility], [address] [place] [address] [email or web address], Clayton Chambers MD - Lab. Director Specimen Serum Performing Organization Address City/[facility] Phone Number [facility] [address] [place] [address] [facility] [address] [place] [address] * Sodium level, urine, random (04/01/2018 7:30 AM CEMENT CUTTER) Sodium, urine, 111 mEq/L [facility] Specimen Urine Performing Organization Address City/[facility] Phone Number [facility] [place] [address] PATHOLOGY AND GENOMIC MEDICINE [address] * Potassium, urine, random (04/01/2018 7:30 AM CEMENT CUTTER) Potassium, 29.4 mEq/L [facility] urine, random [facility] Specimen Urine Performing Organization Address City/[facility] Phone Number [facility] [place] [address] PATHOLOGY AND GENOMIC MEDICINE [address] * Chloride level, urine, random (04/01/2018 7:30 AM CEMENT CUTTER) Chloride, 98 mEq/L [facility] urine, random [facility] Specimen Urine Performing Organization Address [facility] Phone Number [facility] [place] [address] PATHOLOGY AND GENOMIC MEDICINE [address] * Urine drugs of abuse screen (04/01/2018 7:30 AM CEMENT CUTTER) Amphetamine Negative [facility] screen, [facility] Barbiturate Negative [facility] screen, urine [place] [facility] Benzodiazepine Negative [facility] screen, urine [place] [facility] Cannabinoid Negative [facility] screen, [facility] Cocaine screen, Negative [facility] urine [facility] Methadone Negative [facility] metabolite [facility] (EDDP), urine HOSPITAL Opiates screen, Negative [facility] urine [place] [facility] Oxycodone Negative [facility] [place] screen, urine [place] [facility] Phencyclidine Negative [facility] screen, urine [place] [facility] Tricyclic Positive (A) [facility] screen, urine Comment: [place] Drug screen minimum HOSPITAL concentration of detectability [...] purposes only. Specimen Urine Performing Organization Address [facility] Phone Number [facility] [place] [address] PATHOLOGY AND [facility] [address] * Hepatitis B surface antibody (04/01/2018 7:30 AM CEMENT CUTTER) Pathologist [facility] [place] Hepatitis B Non-reactive Non-reactive [facility] Ab [facility] Specimen Blood Performing Organization Address [facility] Phone Number [facility] [place] [address] PATHOLOGY AND [facility] [address] * Lactic acid level (04/01/2018 7:30 AM CEMENT CUTTER) Only the most recent of 3 results within the time period is included. [facility] Lactic acid 1.6 0.5 - 2.2 mmol/L [facility] Specimen Plasma specimen Performing Organization Address [facility] Phone Number [facility] [place] [address] PATHOLOGY AND [facility] [address] * GGT (04/01/2018 7:30 AM CEMENT CUTTER) Only the most recent of 2 results within the time period is included. Pathologist [facility] [place] GGT 854 (H) 0 - 39 U/L [facility] Specimen Plasma specimen Performing Organization Address City/State/Zipcode Phone Number [facility] [place] [address] PATHOLOGY AND GENOMIC MEDICINE [address] * Folate level (04/01/2018 7:30 AM CEMENT CUTTER) Only the most recent of 2 results within the time period is included. [facility] Folate 8.2 4.8 - 24.2 ng/mL [facility] Specimen Serum Performing Organization Address City/[facility]/Zipcode Phone Number [facility] [place] [address] PATHOLOGY AND GENOMIC MEDICINE [address] * Vitamin B12 level (04/01/2018 7:30 AM CEMENT CUTTER) Only the most recent of 2 results within the time period is included. [facility] Vitamin B12 791 211 - 946 pg/mL [facility] Comment: [place] Significant overlap exists HOSPITAL between normal and deficiency states. However, most patients with deficiencies will have Serum B12 <200 pg/mL. Specimen Serum Performing Organization Address [facility] Phone Number [facility] [place] [address] PATHOLOGY AND GENOMIC MEDICINE [address] * Lipid panel (04/01/2018 7:30 AM CEMENT CUTTER) Pathologist [facility] [place] Cholesterol 159 <200 mg/dL [facility] Triglycerides 59 <150 mg/dL [facility] HDL cholesterol 42 >40 mg/dL [facility] LDL cholesterol 109 (H)Comment: Result <100 mg/dL [facility] obtained by direct LDL [facility] Lipid panel SeeBelow [facility] interpretation Comment: [place] Total Cholesterol HOSPITAL (mg/dL) <200 Desirable 200-239Borderline [...] mg/dL) Specimen Plasma specimen Performing Organization Address [facility] [place] [address] * Prealbumin level (04/01/2018 3:45 AM CEMENT CUTTER) Prealbumin 21 16 - 32 mg/dL [facility] Specimen Serum Performing Organization Address [facility] [place] [address] PATHOLOGY AND [facility] [address] * Lactic acid level, SEPSIS - Now and repeat 2x every 3 hours (04/01/2018 1:10 AM CEMENT CUTTER) Only the most recent of 2 results within the time period is included. Lactic acid 2.4 (H) 0.5 - 2.2 mmol/L [facility] Specimen Blood Performing Organization Address [facility] [place] [address] PATHOLOGY AND [facility] [address] * CTA Abdomen Pelvis W And Or Wo Contrast (04/01/2018 1:00 AM CEMENT CUTTER) Specimen Narrative Performed At CT ANGIOGRAM ABDOMEN [...] is identified. 2. No acute intra-abdominal abnormality. [facility]-[id number] Procedure Note [facility], Radiology Results Incoming - 04/01/2018 1:[address] ANGIOGRAM ABDOMEN PELVIS W AND OR [...] is identified. 2. No acute intra-abdominal abnormality. [facility]-[id number] Performing Organization Address [facility]/[place] [address] * Hepatitis C antibody (04/01/2018 12:53 AM CEMENT CUTTER) [facility] Hepatitis C Ab Non-reactive Non-reactive [facility] Specimen Blood Performing Organization Address City/[facility]/Zipcode Phone Number [facility] DEPARTMENT OF [address] [place] [address] PATHOLOGY AND [facility] [address] * Total iron binding capacity (03/31/2018 9:51 PM CEMENT CUTTER) [facility] Iron level 25 (L) 37 - 145 ug/dL [facility] Iron binding 564 (H) 200 - 400 ug/dL [facility] % Saturation 4.4 (L) 15.0 - 38.0 % [facility] Specimen Plasma specimen Performing Organization Address City/[facility]/Zipcode Phone Number [facility] [place] [address] PATHOLOGY AND GENOMIC MEDICINE [address] * Peripheral smear (03/31/2018 9:51 PM CEMENT CUTTER) [facility] Peripheral Done [facility] smear Comment: [place] Peripheral smear is located in HOSPITAL Hematology Laboratory, second floor of [facility]. Specimen Blood Performing Organization Address [facility]/Zipcode Phone Number [facility] DEPARTMENT OF [address] [place] [address] PATHOLOGY AND GENOMIC MEDICINE [address] * Reticulocyte count (03/31/2018 9:51 PM CEMENT CUTTER) Retic %, auto 1.5 0.5 - 2.1 % [facility] Retic absolute, 0.0422 0.0210 - 0.1155 m/uL [facility] auto [facility] Specimen Blood Performing Organization Address [facility] Phone Number [facility] [place] [address] PATHOLOGY AND [facility] [address] * Thyroid stimulating hormone (03/31/2018 9:51 PM CEMENT CUTTER) Only the most recent of 3 results within the time period is included. [facility] TSH 1.60 0.27 - 4.20 uIU/mL [facility] Specimen Plasma specimen Performing Organization Address [facility] Phone Number [facility] [place] [address] PATHOLOGY AND [facility] [address] * LDH (03/31/2018 9:51 PM CEMENT CUTTER) [facility] LDH 181 87 - 225 U/L [facility] Specimen Plasma specimen Performing Organization Address [facility] Phone Number [facility] [place] [address] PATHOLOGY AND [facility] [address] * Haptoglobin (03/31/2018 9:51 PM CEMENT CUTTER) [facility] Haptoglobin 107 30 - 200 mg/dL [facility] Specimen Plasma specimen Performing Organization Address City/[facility] Phone Number [facility] [place] [address] PATHOLOGY AND [facility] [address] * Ferritin level (03/31/2018 9:51 PM CEMENT CUTTER) [facility] Ferritin level 17 13 - 150 ng/mL [facility] Specimen Plasma specimen Performing Organization Address [facility] Phone Number [facility] [place] [address] PATHOLOGY AND GENOMIC MEDICINE [address] * Prepare RBC, 2 Units (03/31/2018 8:54 PM CEMENT CUTTER) Product name Red Blood Cells -1, Leukored [facility] Unit number [id number] [facility] Product code [id number] [facility] Dispense status Transfused [facility] Blood [id number] [facility] expiration date [facility] Blood type code 7300 [facility] Blood type B POSITIVE [facility] Product name Red Blood Cells -1, Leukored [facility] Unit number [id number] [facility] Product code [id number] [facility] Dispense status Transfused [facility] Blood [id number] [facility] expiration date [facility] Blood type code 7300 [facility] Blood type B POSITIVE [facility] Specimen Performing Organization Address [facility] Phone Number [facility] [place] [address] PATHOLOGY AND GENOMIC MEDICINE [address] * Type and screen (03/31/2018 8:54 PM CEMENT CUTTER) ABO grouping B [facility] [facility] Rh type POS [facility] Antibody screen NEG [facility] Specimen Blood Performing Organization Address City/[facility] Hospital[facility] Phone Number [facility] [place] [address] PATHOLOGY AND GENOMIC MEDICINE [address] * CRITICAL CARE (03/31/2018 7:17 PM CEMENT CUTTER) Narrative Performed At Sulma Antoine MD 03/31/2018 [...] AM CDT) Only the most recent of 5 results within the time period is included. GFR Non Af Amer >90 mL/min/1.73 m2 [facility] DEPART[facility] OF PATHOLOGY AND GENOMIC MEDICINE GFR Af Amer >90 mL/min/1.73 m2 [facility] Comment: DEPARTMENT OF Chronic kidney disease: <60 [...] Americans. Specimen Plasma specimen Performing Organization Address City/[facility]/Zipcode Phone Number [address] [place] [address] PATHOLOGY AND [facility] * Uric acid level (10/27/2017 4:30 AM CDT) Uric acid 6.3 (H) 2.4 - 5.7 mg/dL [facility] DEPART[facility] OF PATHOLOGY AND GENOMIC MEDICINE Specimen Plasma specimen Performing Organization Address [facility] Phone Number [address] [place] [address] PATHOLOGY AND [facility] MEDICINE * Myoglobin (10/26/2017 12:16 PM CDT) Myoglobin 134 (H) 21 - 72 ng/mL [facility] DEPARTMENT OF PATHOLOGY AND GENOMIC MEDICINE Specimen Plasma specimen Performing Organization Address City/[facility]/Zipcode Phone Number [facility] [address] [place] [address] PATHOLOGY AND GENOMIC MEDICINE * Aldolase, serum (10/26/2017 12:16 PM CDT) Aldolase 12.8 (H) 1.5 - 8.1 U/L [facility] Comment: REFERENCE INTERVAL: Aldolase Access complete set of age- and/or gender-specific reference intervals for this test in the [facility] Test Directory ([employer]). Performed by [facility], [address] [place] [address] [email or web address], Clayton Chambers MD - Lab. Director Specimen Serum Performing Organization Address City/State/Zipcode Phone Number [facility] [address] [place] [address] * Echocardiogram complete w contrast and 3D [...] LV EF,BP 64.16 % [facility] [place],d A2C 7.73 cm [facility] [place],d A4C 6.75 cm [facility] [place],s A2C 6.19 cm [facility] [place],s A4C 5.36 cm [facility] LV SV,A2C [...] 60%. No pericardial effusion Performing Organization Address City/State/Zipcode Phone Number [facility] [address] [place] [address] * MRI Brain Wo Contrast (10/25/2017 11:50 [...] demonstrated. No change from the prior study. [id number] Procedure Note Interface, Radiology Results - 10/25/2017 12:07 PM CDT EXAMINATION: MRI [...] demonstrated. No change from the prior study. [id number] Performing Organization Address City/State/Zipcode Phone Number [facility] [address] [place] [address] * CT Angiogram Pe Chest (10/25/2017 12:19 [...] No acute abnormality identified in the chest. [facility]-[id number] Procedure Note [facility], Radiology Results Incoming - 10/25/2017 12:27 AM [...] No acute abnormality identified in the chest. [facility]-[id number] Performing Organization Address City/State/Zipcode Phone Number [facility] [address] [place] [address] * D-dimer (10/24/2017 10:20 PM CDT) D-dimer 1.71 (H) 0.00 - 0.40 ug/mL [facility] Comment: FEU DEPARTMENT OF Units are ug/ml [...] and malignancies. Specimen Blood Performing Organization Address [facility] Phone Number [facility] [place] [place] [id number] [place] [address] [place] [address] PATHOLOGY AND GENOMIC MEDICINE * hCG qualitative, urine screen (10/24/2017 9:57 PM CDT) hCG Negative Negative [facility] qualitative, Comment: DEPARTMENT OF urine The manufacturers stated PATHOLOGY AND sensitivity of HcG test for GENOMIC serum is >/=10 MEDICINE mIU/ml and urine is >/=20mIU/ml. Specimen Urine Performing Organization Address [facility] Phone Number [facility] DEPARTMENT OF [address] [place] [address] [place] [address] PATHOLOGY AND GENOMIC MEDICINE * Gram stain (10/24/2017 9:57 PM CDT) Gram stain No WBC's [facility] DEPARTMENT result Moderate Gram negative rods OF PATHOLOGY Comment: AND GENOMIC Specimen Information MEDICINE Specimen Source: Urine Specimen Site: Clean catch Specimen Urine Performing Organization Address [facility] Phone Number [facility] DEPARTMENT OF [address] [place] [address] PATHOLOGY AND GENOMIC MEDICINE * XR Chest 2 Vw (10/24/2017 9:45 PM CDT) Specimen Narrative Performed At EXAMINATION:XR CHEST 2 VW RADIANT CLINICAL HISTORY:Chest Pain COMPARISON:06/05/2005 IMPRESSION: No acute cardiopulmonary disease. FINDINGS: The cardiomediastinal silhouette, lungs, and regional skeletal structures are within normal limits for age. The patient is status post cholecystectomy. Procedure Note Interface, Radiology Results Incoming - 10/24/2017 9:50 PM CDT EXAMINATION: XR CHEST 2 VW CLINICAL HISTORY: Chest Pain COMPARISON: 06/05/2005 IMPRESSION: No acute cardiopulmonary disease. FINDINGS: The cardiomediastinal silhouette, lungs, and regional skeletal structures are within normal limits for age. The patient is status post cholecystectomy. Performing Organization Address [facility] Phone Number [facility] [address] [place] [address] * CRITICAL CARE (10/24/2017 9:06 PM CDT) [...] patient's condition and review of old charts after 10/14/2017 Advance Directives Patient has advance care planning documents, and code status on file. For more i nformation, please contact: Omero Waters [address] [place] [address] Date Inactivated Comments Code Status Date Activated 04/04/2018 3:22 PM Full Code 04/03/2018 9:54 AM Code Status decision reached by: Patient
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
== END 2018-10-15 07:25 | disposition left against medical advice (07) ==
LOC: ER 06:59
DX: R51 Headache (principal)